=== PATIENT | female | born 1960 | race Caucasian/White ===

== ENCOUNTER 2020-05-10 23:58 | Inpatient (IN) | payer MEDICARE ==
[~2020-05-10] VITALS: Ht 172.7 cm; Wt 99.3 kg
--- NOTE | ~2020-05-10 | EEG ---
[address] [address] EEG STUDY REPORT Name: CHIP CURRY Room: [address] IN M.R.#: [id number] Admission: 05/11/20 Attend Phys: Camacho Rose, Discharge: Date of : 56 Report #: [id number] THIS REPORT FOR: cc: FAM - No family physician/PCP FAM - No family physician/PCP ~ Jewel Rizzo MD DATE OF SERVICE: 05/12/2020 This patient is being evaluated for confusion. EEG was done by placing the electrode by standard 10-20 system of electrode placement. Both referential and sequential montages were used for recording. Background activity is about 7 Hz and 15 microvolt. It is a symmetrical activity. The patient went to a sleep and that is associated with bilateral slowing. Throughout the record, no active epileptiform activity was noticed. IMPRESSION: This patient's EEG demonstrates bilateral slowing. That is a nonspecific finding, which can occur with encephalopathy, effect of psychotropic medication, dementia, etc. Clinical correlation is recommended. Thank you very much for this referral. By: [id number] Rizzo MD /nt
--- NOTE | ~2020-05-10 | EMS ---
[facility] [address] [place] [address] EMS Patient Care Report Name: CHIP CURRY Room: [address] IN M.R.#: [id number] Admission: 05/11/20 Attend Phys: Camacho Rose, Discharge: 05/13/20 Date of : 56 Report #: [id number] THIS REPORT FOR: //name// Report Transmitted: 05/16/2020 07:44 EMS Care Summary [place] [facility] Incident [id number] @ 05/10/2020 22:46 Incident Location [address] [place] [address] Patient CHIP CURRY Female, 59 Years 1960 Patient Address [address] [place] [address] Patient History Hypertension (HTN),Type 2 Diabetes, Chief Complaint Altered LOC Disposition Transported No Lights/[place] Dispatch Reason Sick Person Transported To [facility] Narrative Engine 1 and Med 1 were dispatched for a [age] year-old female that had altered LOC. Upon arrival, patient's met us at the ambulance in the driveway apologizing. I told him," you don't have to apologize we are here to help." He stated," You haven't seen the house yet." We proceeded to the house the porch had clutter and trash all over it with just a small path to the front door. Inside the door, there was a small path to walk through and clutter and trash were piled high to the ceiling. The led us approximately 15 feet inside the door where the [place] [address] EMS Patient Care Report Name: CHIP CURRY Room: [address] IN M.R.#: [id number] Admission: 05/11/20 Attend Phys: Camacho Rose, Discharge: 05/13/20 Date of : 56 Report #: [id number] pathway. The stepped over and I asked the patient what happened. She mumbled," I was going to the bathroom and lost my balance." I asked the patient what happened she reported taking 3 pills of her Gabapentin and 2 pills of her 's Flexeril. The patient's and myself attempted to assist the patient to a standing position. TERESO Jackson was standing behind me to assist due to lack of room in the residence no one was able to assist. The patient walked approximately 3 feet and grabbed on to a hutch that was leaning against the wall and the hutch and all the vases, angel trays and miscellaneous things fell on me. TERESO Jackson was able to push it off me and get it back against the wall. We finally were able to get the patient to the front yard and get her on the stretcher. The patient was secured to the stretcher via seatbelts and moved to the ambulance without incident. In the ambulance, patient's vitals were obtained and patient was placed on the manager monitoring. It shown NSR but the electrodes would not stick to the patient due to her skin being dirty. IV access was attempted 2x without success. Med 1 went enroute to [facility]. Patient was monitored enroute to the hospital and she became more alert and oriented through out transport. Hospital report was given via radio with no questions or orders received or requested. Med 1 arrived at the hospital. Patient was moved into the ER room 4 without incident. Patient care was transferred to ER staff. Med 1 returned back into service. [id number] KShook Initial Vitals @23:19P: 216,BP: 148/91,SpO2: 97, @23:48P: 120, @23:35P: 116,BP: 120/64, @23:38P: 118, @23:29P: 114,R: 18,BP: 134/88,GCS: 14,Glucose: 128,SpO2: 98,Revised Trauma: 12, @23:33P: 116, @23:43P: 121,R: 18,BP: 124/86,GCS: 15,SpO2: 98,Revised Trauma: 12, Assessments @23:03MENTAL:Confused,Other,Person Oriented,Place Oriented,SKIN:HEENT:Head/Face: Swelling,Eyes: Left: Non-Reactive,Eyes: Left Pupil: 2-mm,Eyes: Right: Non-Reactive,Eyes: Right Pupil: 2-mm,Neck/Airway: No Abnormalities,LUNG SOUNDS:ABDOMEN:PELVIS//GI:EXTREMITIES:PULSE:NEURO: Impression [place] [address] EMS Patient Care Report Name: PATRICIOCHIP BERKLEY Room: [address] IN M.R.#: [id number] Admission: 05/11/20 Attend Phys: Camacho VallesJayson Milton, Discharge: 05/13/20 Date of : 56 Report #: [id number] Procedures @23:26 cc (20 ga) Site: Forearm-LeftResponse: UnchangedFailed@23:34 cc (20 ga) Site: Antecubital-LeftResponse: UnchangedFailed@23:38 cc (20 ga) Site: Forearm-RightResponse: UnchangedFailed Timeline 22:46,Call Received 22:46,Dispatched 22:48,En Route 22:53,On Scene 22:55,At Patient 23:19,BP: 148/91 M,PULSE: 216,RR: R,SPO2: 97 Ox,ETCO2: ,BG: ,PAIN: ,GCS: , 23:23,Depart Scene 23:26, cc 20 ga Site: Forearm-Left,Response: UnchangedFailed, 23:29,BP: 134/88 M,PULSE: 114,RR: 18 R,SPO2: 98 Ox,ETCO2: ,B,PAIN: ,GCS: 14, 23:33,BP: / M,PULSE: 116,RR: R,SPO2: Ox,ETCO2: ,BG: ,PAIN: ,GCS: , 23:34, cc 20 ga Site: Antecubital-Left,Response: UnchangedFailed, 23:35,BP: 120/64 M,PULSE: 116,RR: R,SPO2: Ox,ETCO2: ,BG: ,PAIN: ,GCS: , 23:38, cc 20 ga Site: Forearm-Right,Response: UnchangedFailed, 23:38,BP: / M,PULSE: 118,RR: R,SPO2: Ox,ETCO2: ,BG: ,PAIN: ,GCS: , 23:43,BP: 124/86 M,PULSE: 121,RR: 18 R,SPO2: 98 Ox,ETCO2: ,BG: ,PAIN: ,GCS: 15, 23:48,At Destination 23:48,BP: / M,PULSE: 120,RR: R,SPO2: Ox,ETCO2: ,BG: ,PAIN: ,GCS: , 00:24,Call Closed 00:24,In District Disclaimer v1.1 Copyright 2020 [employer] This EMS Care Summary contains data elements from the applicable legal record (which may be displayed differently). It is designed to provide pertinent information for the following purposes: continuity of care, clinical quality, and state data reporting. The complete legal record is available to ED staff and administrators of the receiving hospital in [employer]'s Patient Tracker. All data is provided "as is."
--- NOTE | ~2020-05-10 | CON ---
[address] [address] CONSULTATION Name: CHIP CURRY Room: [address] IN M.R.#: [id number] Admission: 05/11/20 Attend Phys: Camacho Rose, Discharge: Date of : 56 Report #: [id number] THIS REPORT FOR: cc: FAM - No family physician/PCP FAM - No family physician/PCP ~ Jewel Rizzo MD DATE OF SERVICE: 05/11/2020 HISTORY OF PRESENT ILLNESS: This is a 59-year-old female patient who was evaluated by me for confusion. The records were reviewed. Apparently, she was confused when she came in and she has taken muscle relaxer, she has taken gabapentin, then she was confused. She fell down and she was brought here. In the Emergency Room, she had multiple testing, she had a head CT, C-spine CT, thoracic spine CT, and a lumbar spine CT. She thinks she had an MRI, but I do not find any MRI in this patient. REVIEW OF SYSTEMS: A 14-point review of system was carried out, this patient has recurrent falls. She has been on gabapentin for diabetic neuropathy. Her renal function was not very good when she came in. She does not tell me how much gabapentin was she taking, but nurses had called the pharmacy and apparently she takes heavy dosages of gabapentin. One of the records indicate she takes 1800 mg at a given time, but she does not tell me how many times she takes those. A 14-point review of system was carried out. She is still confused. She has some problem with the left knee, which apparently has contusion. She has a history of COPD. She has a history of falls. She is a diabetic. One time, she had cellulitis of the face. She does not have any chest pain. She does have neuropathy. She does not have any new GI, , constitutional, dermatological, hematological, psychiatric, throat, allergic symptoms associated with present symptomatology. PAST MEDICAL HISTORY: Positive for diabetes and apparently she had some episode of dizziness like this even before. She had recurrent falls and she says she falls when she feels dizzy. FAMILY HISTORY: Negative for early age stroke. SOCIAL HISTORY: She is as per records, but I was not able to reach the patient's . PHYSICAL EXAMINATION: GENERAL: Indicate that she tells me what month it is, but she cannot tell me the exact date. She knows what hospital she is in. She knows who the president is. She otherwise does poorly with short-term memory. Cranial nerve examinations appear unremarkable. She does appear to [place] [address] CONSULTATION Name: CURRYCHIP SUE Room: [address] IN M.R.#: [id number] Admission: 05/11/20 Attend Phys: Camacho Rose, Discharge: Date of : 56 Report #: [id number] 4 extremities, but it is symmetrical weakness. It took us some time, but she was able to tell me the position sense on both sides. Her reflexes could not be elicited in the lower extremities. Tone looks unremarkable. [id number]-od-[id number] looks unremarkable. There is no meningeal sign. I could not look at the patient's fundus. There is no carotid bruit. She does have some problem with the knee. She is morbidly obese. CARDIAC: Unremarkable. RESPIRATORY: Shows some scattered rhonchi. VITAL SIGNS: Blood pressure is 119/51, respirations 17, pulse is 114, temperature is 98.7. LABORATORY DATA: White count is 11.7. GFR is 33 and it was actually 27 when she came in. IMPRESSION: 1. Most likely, this is encephalopathy caused by renal dysfunction in a patient who is taking gabapentin. Gabapentin is almost exclusively excreted by kidney and whenever the kidney function is altered, gabapentin toxicity can occur. 2. Other etiologies need to be excluded in this patient. I will suggest getting an MRI and an electroencephalogram done to exclude that. We will give her some time to see if her confusion clears up and she may have to get her gabapentin dose, which is in the future. I discussed all of it with the patient, although it is difficult to tell how much she understands things. Thank you very much for this referral. By: 1358 1427Jewel Rizzo MD /nt
[~2020-05-10 23:58] MED LIST: ALBUTEROL SULFAT2 MG PO; BLOOD PRESSURE MED; DICLOXACILLIN500 MG PO; DULERA 200 MCG/13 GM INH; DUONEB 2.5-0.5 M3 ML INH; FLONASE 0.05%50 MCG NASAL; INSULIN; LEVAQUIN 500 M500 M2 PO; LEVAQUIN 750 M750 MG PO; LEVEMIR FL100 UNIT/1 SUBQ; MUCINEX600 MG PO; NEURONTIN800 MG PO; NOVOLOG FL100 UNIT/M SUBQ; OXYCODONE-APAP1 EAC4 PO; PREDNISONE 10 M10 MG PO; PREDNISONE 20 M20 M1 PO; PREDNISONE 20 M20 MG PO; PRINZIDE 20-251 EACH PO; PULMICORT0.5 MG/2 M INH; SINGULAIR 10 MG10 M1 PO; ZANTAC 150MG T150 M1 PO
[2020-05-10 23:59] VITALS: BP 125/73
[2020-05-11 00:27] LABS: URINE BILIRUBIN NEGATIVE (Negative); URINE BLOOD NEGATIVE (Negative); URINE CLARITY CLEAR; URINE COLOR YELLOW; URINE GLUCOSE-RANDOM 3+ (Negative); URINE KETONES NEGATIVE (Negative); URINE LEUKOCYTES-REFLEX NEGATIVE (Negative); URINE NITRITE-REFLEX NEGATIVE (Negative); URINE PROTEIN NEGATIVE (Negative); URINE UROBILINOGEN 0.2 E.U./dl (0.2-1.0)
[2020-05-11 00:34] LABS: AMP/METHAMP Negative (Negative); BARBITURATES Negative (Negative); BENZODIAZEPINES Negative (Negative); COCAINE Negative (Negative); METHADONE Negative (Negative); OPIATES Negative (Negative); PCP Negative (Negative); THC Negative (Negative)
[2020-05-11 00:56] LABS: CALCIUM 9.7 mg/dL (8.5-10.1); CREATININE 1.9 mg/dL (0.6-1.3); POTASSIUM 4.9 mmol/L (3.5-5.1)
[2020-05-11 01:03] LABS: ABSOLUTE EOSINOPHILS 0.4 thou/uL (0.0-0.7); ABSOLUTE LYMPHOCYTES 1.7 thou/uL (0.8-5.3); ABSOLUTE MONOCYTES 0.5 thou/uL (0.0-1.2); ABSOLUTE NEUTROPHILS 9.1 thou/uL (1.6-8.1); BASOPHILS 0.4 %; EOSINOPHILS 3.2 %; LYMPHOCYTES 14.5 %; MCH 30.9 pg (26.0-34.0); MCHC 33.4 g/dL (28.0-37.0); MCV 92.6 fL (80.0-100.0); MONOCYTES 4.3 %; MPV 7.9 fl. (7.2-11.1); NUCLEATED RBCS 0 /100WBC; PLATELET COUNT* 179 thou/uL (150-400); POLYS 77.6 %; RBC 4.21 mil/uL (4.20-5.00); RDW-CV 13.6 % (10.5-14.5); WBC 11.7 thou/uL (4.0-11.0)
[2020-05-11 01:04] LABS: INR 0.9
[2020-05-11 01:06] LABS: ALBUMIN 3.8 g/dL (3.4-5.0); TOTAL BILIRUBIN 0.6 mg/dL (<0.1-1.0); TOTAL PROTEIN 7.3 g/dL (6.4-8.2)
[2020-05-11 01:07] LABS: SALICYLATE < 2.8 mg/dL (2.8-20.0)
[2020-05-11 01:09] LABS: ACETAMINOPHEN < 2 ug/mL (10-30); ALCOHOL < 10 mg/dL (<10)
[2020-05-11 03:40] VITALS: BP 144/80
[2020-05-11 06:08] VITALS: BP 160/93
[2020-05-11] MEDS ORDERED: GABAPENTIN800 M1 PO (08:02)
[2020-05-11] MEDS ORDERED: TRAZODONE HCL100 MG PO (08:02)
[2020-05-11] MEDS ORDERED: GLIPIZIDE ER2.5 MG PO (08:03)
[2020-05-11] MEDS ORDERED: SYMBICORT80 MCG/4.1 INH (08:04)
[2020-05-11] MEDS ORDERED: LIPITOR 40 MG T40 M1 PO (08:05)
[2020-05-11] MEDS ORDERED: PROZAC10 M1 PO (08:05)
[2020-05-11] MEDS ORDERED: ZYRTEC10 M4 PO (08:07)
[2020-05-11] MEDS ORDERED: LEVEMIR FL100 UNIT/2 SQ (08:07)
[2020-05-11 09:51] LABS: BE -2.4 mmol/L (-2 to +3); PO2 93.5 mmHg (75.0-100.0); pH 7.393 (7.340-7.450)
[2020-05-11 09:55] LABS: CALCIUM 9.2 mg/dL (8.5-10.1); CREATININE 1.6 mg/dL (0.6-1.3); POTASSIUM 4.6 mmol/L (3.5-5.1)
[2020-05-11 09:58] LABS: MAGNESIUM 1.8 mg/dL (1.8-2.4); PHOSPHORUS* 2.9 mg/dL (2.5-4.9)
--- NOTE | 2020-05-11 11:44 | 2DMMODE ---
[place] [address] 2 D/M-MODE ECHOCARDIOGRAM Name: CURRYCHIP GOODEN Room: [address] IN Lynda.#: [id number] Admission: 05/11/20 Attend Phys: Camacho Pickering Discharge: Date of : 56 Date of Service: 05/11/20 1143 Report #: [id number] THIS REPORT FOR: cc: FAM - No family physician/PCP FAM - No family physician/PCP Felix Torres MD [facility] ~ APPROVED REPORT Study performed: 05/11/2020 10:47:32 EXAM: Comprehensive 2D, Doppler, and color-flow Echocardiogram Patient Location: In-Patient Room #: [facility] Status: routine BSA: 2.11 HR: 94 bpm BP: 160/93 mmHg Rhythm: NSR Other Information Study Quality: Good Indications CVA/TIA Echo Enhancing Agent Indication: Rule out Shunt Agent(s) / Amount(s) Used: Agitated Saline 10 cc 2D Dimensions IVSd: 12.58 (7-11mm) LVOT Diam: 20.39 (18-24mm) LVDd: 40.18 mm PWd: 8.88 (7-11mm) Ascending Ao: 29.69 (22-36mm) LVDs: 25.56 (25-40mm) Aortic Root: 33.90 mm Volumes Left Atrial Volume (Systole) LA ESV Index: 17.00 mL/m2 Aortic Valve AoV Peak Nathan.: 1.61 m/s AO Peak Gr.: 10.41 mmHg LVOT Max P.67 mmHg AO Mean Gr.: 6.98 mmHg LVOT Mean P.59 [place] [address] 2 D/M-MODE ECHOCARDIOGRAM Name: CURRYCHIP BERKLEY Room: [address] IN ..#: [id number] Admission: 05/11/20 Attend Phys: Camacho Pickering Discharge: Date of : 56 Date of Service: 05/11/20 1143 Report #: [id number] LVOT Max V: 1.19 m/s AO V2 VTI: 26.53 cm LVOT Mean V: 0.90 m/s BOOM (VTI): 2.91 cm2 LVOT V1 VTI: 23.64 cm Pulmonary Valve PV Peak Nathan.: 1.30 m/s PV Peak Gr.: 6.81 mmHg Left Ventricle The left ventricle is normal size. There is normal LV segmental wall motion. Mild septal hypertrophy is present. Left ventricular systolic function is hyperdynamic. LVEF is >70%. Transmitral Doppler flow pattern suggests impaired LV relaxation. Right Ventricle The right ventricle is normal size. The right ventricular systolic function is normal. Atria The left atrium size is normal. The interatrial septum is intact with no evidence for an atrial septal defect. The right atrium size is normal. Aortic Valve Mild aortic valve sclerosis. No aortic regurgitation is present. There is no aortic valvular stenosis. Mitral Valve The mitral valve is normal in structure. Trace mitral regurgitation. No evidence of mitral valve stenosis. Tricuspid Valve The tricuspid valve is normal in structure. Trace tricuspid regurgitation. Pulmonic Valve The pulmonary valve is normal in structure. There is no pulmonic valvular regurgitation. Great Vessels The aortic root is normal in size. IVC is normal in size and collapses >50% with inspiration. Pericardium There is no pericardial effusion. <Conclusion> [place] [address] 2 D/M-MODE ECHOCARDIOGRAM Name: CHIP CURYR Room: [address] IN .R.#: [id number] Admission: 05/11/20 Attend Phys: Camacho Pickering Discharge: Date of : 56 Date of Service: 05/11/20 1143 Report #: [id number] The left ventricle is normal size. Mild septal hypertrophy is present. Left ventricular systolic function is hyperdynamic. LVEF is >70%. Transmitral Doppler flow pattern suggests impaired LV relaxation. Mild aortic valve sclerosis. Trace mitral regurgitation. Trace tricuspid regurgitation. IVC is normal in size and collapses >50% with inspiration. The interatrial septum is intact with no evidence for an atrial septal defect. <ELECTRONICALLY SIGNED> By: Felix Torres MD, FACC 05/11/20 1143 1143 1143 Felix Torres MD, FACC /INF
[2020-05-11 12:10] VITALS: BP 119/51
--- NOTE | 2020-05-11 12:21 | EKG ---
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: : 1960 Requested By: Hayley Castellano Order Number: [id number] MD: Felix Torres Measurements Intervals [place] Rate: 111 P: 60 TX: 186 QRS: 15 QRSD: 95 T: 84 QT: 329 QTc: 447 Interpretive Statements Sinus tachycardia Baseline wander in lead(s) V6 Compared to ECG 01/06/2017 16:07:02 No significant changes Electronically Signed On 05-11-2020 12:21:41 CDT by Felix Torres [email or web address] <ELECTRONICALLY SIGNED> By: Felix Torres MD, FACC 05/11/20 1221 0008 0008 Felix Torres MD, [facility] /EPI
--- NOTE | 2020-05-11 15:20 | EKG ---
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1887 : 1960 Requested By: Shawn Spaulding Order Number: [id number] MD: Jamie Delgado Measurements Intervals [place] Rate: 122 P: 79 DE: 189 QRS: 0 QRSD: 85 T: 155 QT: 272 QTc: 388 Interpretive Statements Sinus tachycardia Repol abnrm suggests ischemia, lateral leads Baseline wander in lead(s) V5 Compared to ECG 05/11/2020 00:08:37 Possible ischemia now present Electronically Signed On 05-11-2020 15:20:40 CDT by Jamie Delgado [email or web address] <ELECTRONICALLY SIGNED> By: Jamie Delgado MD, FAC 05/11/20 1520 1327 1327 Jamie Delgado MD, FAC /EPI
[2020-05-11 16:00] VITALS: BP 122/71
[2020-05-11 20:30] VITALS: BP 138/76
[2020-05-12 00:03] VITALS: BP 117/63
[2020-05-12 04:22] VITALS: BP 91/60
[2020-05-12 04:31] LABS: MCHC 33.7 g/dL (28.0-37.0); MPV 8.7 fl. (7.2-11.1); RBC 3.37 mil/uL (4.20-5.00); RDW-CV 13.7 % (10.5-14.5); WBC 10.9 thou/uL (4.0-11.0)
[2020-05-12 04:38] LABS: CALCIUM 8.7 mg/dL (8.5-10.1); CREATININE 1.6 mg/dL (0.6-1.3); MAGNESIUM 1.8 mg/dL (1.8-2.4); POTASSIUM 4.4 mmol/L (3.5-5.1)
[2020-05-12 04:52] LABS: HEMOGLOBIN 10.5 gm/dL (12.0-15.0)
[2020-05-12 08:00] VITALS: BP 118/61
[2020-05-12 12:00] VITALS: BP 118/57
[2020-05-12 15:57] VITALS: BP 117/73
[2020-05-12 20:10] VITALS: BP 111/67
[2020-05-13] VITALS: BP 101/58
[2020-05-13 04:00] VITALS: BP 123/63
[2020-05-13 04:43] LABS: HEMOGLOBIN 10.3 gm/dL (12.0-15.0); MCH 31.1 pg (26.0-34.0); MCHC 33.4 g/dL (28.0-37.0); MCV 93.1 fL (80.0-100.0); MPV 7.6 fl. (7.2-11.1); RBC 3.32 mil/uL (4.20-5.00); WBC 8.8 thou/uL (4.0-11.0)
[2020-05-13 05:02] LABS: CALCIUM 8.9 mg/dL (8.5-10.1); CREATININE 1.6 mg/dL (0.6-1.3); MAGNESIUM 1.8 mg/dL (1.8-2.4); POTASSIUM 4.4 mmol/L (3.5-5.1)
[2020-05-13] MEDS ORDERED: NEURONTIN 400400 M1 PO (09:47)
[2020-05-13 12:51] VITALS: BP 139/72
[2020-05-13 12:57] VITALS: BP 139/72
== END 2020-05-13 13:15 | disposition home or self-care (01) | DRG 91 ==
LOC: M.ERS 23:58 → M.TBA-ER 05-11 03:13 → M.2W 05-11 03:13
PROVIDERS: Emergency Medicine; Internal Medicine; ADMIT Family Medicine; ATTEND Family Medicine
PROC: 0HBRXZZ Excision of Toe Nail, External Approach (ICD-10-PCS; principal; 2020-05-11)
DX: G92 Toxic encephalopathy (principal); N17.0 Acute kidney failure with tubular necrosis; E87.2 Acidosis; N04.9 Nephrotic syndrome with unspecified morphologic changes; J44.9 Chronic obstructive pulmonary disease, unspecified; I10 Essential (primary) hypertension; E78.00 Pure hypercholesterolemia, unspecified; S80.02XA Contusion of left knee, initial encounter; S80.01XA Contusion of right knee, initial encounter; W18.39XA Other fall on same level, initial encounter; E66.9 Obesity, unspecified; E11.42 Type 2 diabetes mellitus with diabetic polyneuropathy; B35.1 Tinea unguium; L84 Corns and callosities; L89.629 Pressure ulcer of left heel, unspecified stage; L89.619 Pressure ulcer of right heel, unspecified stage; T50.995A Adverse effect of other drugs, medicaments and biological substances, initial encounter; D72.10 Eosinophilia, unspecified; E11.621 Type 2 diabetes mellitus with foot ulcer; L89.899 Pressure ulcer of other site, unspecified stage; Z20.822 Contact with and (suspected) exposure to COVID-19; Z79.4 Long term (current) use of insulin; Z79.899 Other long term (current) drug therapy; Y92.89 Other specified places as the place of occurrence of the external cause; Y93.89 Activity, other specified; Y99.8 Other external cause status; Z68.33 Body mass index [BMI] 33.0-33.9, adult

== ENCOUNTER 2020-09-28 18:43 | Inpatient (IN) | payer MEDICARE ==
[~2020-09-28] VITALS: Ht 172.7 cm; Wt 106.6 kg
--- NOTE | ~2020-09-28 | EMS ---
[facility] [address] [place] [address] EMS Patient Care Report Name: CHIP CURRY Room: [place] [address] ADM IN [facility]#: [id number] Admission: 09/28/20 Attend Phys: Courtney Daley MD Discharge: Date of : 56 Report #: [id number] THIS REPORT FOR: //name// Report Transmitted: 09/29/2020 12:21 EMS Care Summary [place] [facility] Incident [id number] @ 09/28/2020 17:52 Incident Location [address] [place] [address] Patient CHIP CURRY Female, 60 Years 1960 Patient Address [address] [place] [address] Patient History Hypertension (HTN),Neuropathy,Gout,Type 2 Diabetes, Patient Allergies No known allergies, Patient Medications Trazodone, Gabapentin, Insulin, Chief Complaint gangrene Disposition Transported No Lights/[place] Dispatch Reason Sick Person Transported To [facility] Narrative [place] Med 1 was dispatched on a lift assist. Med 1 responds to the scene urgently. Arrival at the scene patient is located outside the residence on the ground. Family advises that they were attempting to get her to the car to go the hospital when she tripped in the grass with her walker. Patient is GCS 15, [facility] [address] [place] [place] [address] EMS Patient Care Report Name: CHIP CURRY Room: [address] IN [facility]#: [id number] Admission: 09/28/20 Attend Phys: Courtney Daley MD Discharge: Date of : 56 Report #: [id number] AAOx4. Patient has a patent airway is breathing adequately with strong regular radial pulses. Skin is pale warm and dry. Patient denies any chest pain, SOB, neck or back pain. Necrosis is noted to the left foot along with red discoloration and swelling hot to the touch. Patient is moved to the stretcher and secured in the fowlers position using seatbelts and rails. Patient is then wheeled to the ambulance and placed on the monitor, VS and ECG are obtained as well as IV access in the left antecubital region using a 20 gauge and secured with a venigard. 10 ML NS is flushed and glucose check is conducted. Results read HI on the monitor. Fluid bolus of NS is initiated. Transport is initiated to [facility]. Patient is placed on oxygen via ETCO2 capno-cannula at 4LPM and results read 26mmhg. Assessment is conducted. Patient is GCS 15, AAOx4. Patient has a patent airway is breathing adequately with strong regular radial pulses. Skin is pale warm and dry. HEENT are WNL, Pupils are PERRL. Trachea is midline with no JVD noted, Chest wall is stable and intact with symmetrical rise and fall. Lung sounds are clear and equal. Abdomen is soft and nontender with no distention or rigidity noted. Pelvis is stable and intact, CMSX 3 noted. Left foot is noted to be red and hot to the touch. Tenderness is noted along with necrosis of two toes. Dorsal side of the fish is noted to have beginning stages of necrosis. Stroke scale conducted is negative. Arrival at the receiving facility patient condition is stable and unchanged. Patient is offloaded and taken to ED room 9. Patient is moved to the bed using the linen. RN is given report and signatures are obtained. Transfer of care is completed and Med 1 returns to service. Initial Vitals @18:10P: 114,R: 20,Pain: 2/10,GCS: 15,Glucose: -2,SpO2: 91,Revised Trauma: 12,AR Suspected: false @18:08P: 114,R: 22,BP: 144/83,Pain: 6/10,GCS: 15,Glucose: -2,SpO2: 91,Revised Trauma: 12,AR Suspected: false @18:24P: 114,R: 18,BP: 159/74,GCS: 15,EtCO2: 24,SpO2: 99,Revised Trauma: 12, @18:21P: 117,R: 22,BP: 145/87,GCS: 15,SpO2: 99,Revised Trauma: 12, Impression Diabetic Hyperglycemia Procedures @18:09Saline Lock 10cc (20 ga) Site: Antecubital-LeftResponse: UnchangedSucceeded@18:13Normal Saline (.9% NaCl) 1000cc (20 ga) Site: Antecubital-LeftResponse: UnchangedSucceeded@18:24ALS AssessmentResponse: UnchangedSucceeded@18:25Oxygen FlowRate: 4 Device: CO2 Nasal Cannula Response: [address] [address] EMS Patient Care Report Name: CHIP CURRY Room: [address] IN M.R.#: [id number] Admission: 09/28/20 Attend Phys: Courtney Daley MD Discharge: Date of : 56 Report #: [id number] ImprovedSucceeded Timeline 17:52,Call Received 17:52,Dispatched 17:56,En Route 18:05,Initial Responder On Scene 18:05,On Scene 18:07,At Patient 18:08,BP: 144/83 M,PULSE: 114,RR: 22 R,SPO2: 91 Ox,ETCO2: ,BG: -2,PAIN: 6,GCS: 15, 18:09,Saline Lock 10cc 20 ga Site: Antecubital-Left,Response: UnchangedSucceeded, 18:10,BP: 140/ M,PULSE: 114,RR: 20 R,SPO2: 91 Ox,ETCO2: ,BG: -2,PAIN: 2,GCS: 15, 18:13,Depart Scene 18:13,Normal Saline (.9% NaCl) 1000cc 20 ga Site: Antecubital-Left,Response: UnchangedSucceeded, 18:21,BP: 145/87 M,PULSE: 117,RR: 22 R,SPO2: 99 Ox,ETCO2: ,BG: ,PAIN: ,GCS: 15, 18:24,BP: 159/74 M,PULSE: 114,RR: 18 R,SPO2: 99 Ox,ETCO2: 24 ,BG: ,PAIN: ,GCS: 15, 18:24,ALS Assessment,Response: UnchangedSucceeded, 18:25,Oxygen FlowRate: 4 Device: CO2 Nasal Cannula Response: ImprovedSucceeded, 18:37,At Destination 18:40,Transfer Patient 19:04,Call Closed 19:04,In District Disclaimer v1.1 Copyright 2020 [employer] This EMS Care Summary contains data elements from the applicable legal record (which may be displayed differently). It is designed to provide pertinent information for the following purposes: continuity of care, clinical quality, and state data reporting. The complete legal record is available to ED staff and administrators of the receiving hospital in [facility]'s Patient Tracker. All data is provided "as is."
--- NOTE | ~2020-09-28 | EMS ---
[facility] [address] [place] [address] EMS Patient Care Report Name: CHIP CURRY Room: [facility]#: [id number] Admission: 09/28/20 Attend Phys: Discharge: Date of : 56 Report #: [id number] THIS REPORT FOR: //name// Report Transmitted: 09/28/2020 19:12 EMS Care Summary [facility] Incident [id number] @ 09/28/2020 17:52 Incident Location [address] [place] [address] Patient CHIP CURRY Female, 60 Years 1960 Patient Address [address] [place] [address] Patient History Hypertension (HTN),Neuropathy,Gout,Type 2 Diabetes, Patient Allergies No known allergies, Patient Medications Trazodone, Gabapentin, Insulin, Chief Complaint gangrene Disposition Transported No Lights/[place] Dispatch Reason Sick Person Transported To [facility] Narrative [facility] was dispatched on a lift assist. Med 1 responds to the scene urgently. Arrival at the scene patient is located outside the residence on the ground. Family advises that they were attempting to get her to the car to go the hospital when she tripped in the grass with her walker. Patient is GCS 15, [facility] [address] [place] [address] EMS Patient Care Report Name: CHIP CURRY Room: [facility]#: [id number] Admission: 09/28/20 Attend Phys: Discharge: Date of : 56 Report #: [id number] AAOx4. Patient has a patent airway is breathing adequately with strong regular radial pulses. Skin is pale warm and dry. Patient denies any chest pain, SOB, neck or back pain. Necrosis is noted to the left foot along with red discoloration and swelling hot to the touch. Patient is moved to the stretcher and secured in the fowlers position using seatbelts and rails. Patient is then wheeled to the ambulance and placed on the monitor, VS and ECG are obtained as well as IV access in the left antecubital region using a 20 gauge and secured with a venigard. 10 ML NS is flushed and glucose check is conducted. Results read HI on the monitor. Fluid bolus of NS is initiated. Transport is initiated to [facility]. Patient is placed on oxygen via ETCO2 capno-cannula at 4LPM and results read 26mmhg. Assessment is conducted. Patient is GCS 15, AAOx4. Patient has a patent airway is breathing adequately with strong regular radial pulses. Skin is pale warm and dry. HEENT are WNL, Pupils are PERRL. Trachea is midline with no JVD noted, Chest wall is stable and intact with symmetrical rise and fall. Lung sounds are clear and equal. Abdomen is soft and nontender with no distention or rigidity noted. Pelvis is stable and intact, CMSX 3 noted. Left foot is noted to be red and hot to the touch. Tenderness is noted along with necrosis of two toes. Dorsal side of the fish is noted to have beginning stages of necrosis. Stroke scale conducted is negative. Arrival at the receiving facility patient condition is stable and unchanged. Patient is offloaded and taken to ED room 9. Patient is moved to the bed using the linen. RN is given report and signatures are obtained. Transfer of care is completed and Med 1 returns to service. Initial Vitals @18:10P: 114,R: 20,Pain: 2/10,GCS: 15,Glucose: -2,SpO2: 91,Revised Trauma: 12,AK Suspected: false @18:08P: 114,R: 22,BP: 144/83,Pain: 6/10,GCS: 15,Glucose: -2,SpO2: 91,Revised Trauma: 12,AK Suspected: false @18:24P: 114,R: 18,BP: 159/74,GCS: 15,EtCO2: 24,SpO2: 99,Revised Trauma: 12, @18:21P: 117,R: 22,BP: 145/87,GCS: 15,SpO2: 99,Revised Trauma: 12, Impression Diabetic Hyperglycemia Procedures @18:09Saline Lock 10cc (20 ga) Site: Antecubital-LeftResponse: UnchangedSucceeded@18:13Normal Saline (.9% NaCl) 1000cc (20 ga) Site: Antecubital-LeftResponse: UnchangedSucceeded@18:24ALS AssessmentResponse: UnchangedSucceeded@18:25Oxygen FlowRate: 4 Device: CO2 Nasal Cannula Response: [place] [address] EMS Patient Care Report Name: CHIP CURRY [id number] Admission: 09/28/20 Attend Phys: Discharge: Date of : 56 Report #: [id number] ImprovedSucceeded Timeline 17:52,Call Received 17:52,Dispatched 17:56,En Route 18:05,Initial Responder On Scene 18:05,On Scene 18:07,At Patient 18:08,BP: 144/83 M,PULSE: 114,RR: 22 R,SPO2: 91 Ox,ETCO2: ,BG: -2,PAIN: 6,GCS: 15, 18:09,Saline Lock 10cc 20 ga Site: Antecubital-Left,Response: UnchangedSucceeded, 18:10,BP: 140/ M,PULSE: 114,RR: 20 R,SPO2: 91 Ox,ETCO2: ,BG: -2,PAIN: 2,GCS: 15, 18:13,Depart Scene 18:13,Normal Saline (.9% NaCl) 1000cc 20 ga Site: Antecubital-Left,Response: UnchangedSucceeded, 18:21,BP: 145/87 M,PULSE: 117,RR: 22 R,SPO2: 99 Ox,ETCO2: ,BG: ,PAIN: ,GCS: 15, 18:24,BP: 159/74 M,PULSE: 114,RR: 18 R,SPO2: 99 Ox,ETCO2: 24 ,BG: ,PAIN: ,GCS: 15, 18:24,ALS Assessment,Response: UnchangedSucceeded, 18:25,Oxygen FlowRate: 4 Device: CO2 Nasal Cannula Response: ImprovedSucceeded, 18:37,At Destination 18:40,Transfer Patient 19:04,Call Closed 19:04,In District Disclaimer v1.1 Copyright 2020 [employer] This EMS Care Summary contains data elements from the applicable legal record (which may be displayed differently). It is designed to provide pertinent information for the following purposes: continuity of care, clinical quality, and state data reporting. The complete legal record is available to ED staff and administrators of the receiving hospital in [facility]'s Patient Tracker. All data is provided "as is."
[~2020-09-28 18:43] MED LIST changes: +GABAPENTIN800 M1 PO; +GLIPIZIDE ER2.5 MG PO; +LEVEMIR FL100 UNIT/2 SQ; +LIPITOR 40 MG T40 M1 PO; +NEURONTIN 400400 M1 PO; +PROZAC10 M1 PO; +SYMBICORT80 MCG/4.1 INH; +TRAZODONE HCL100 MG PO; +ZYRTEC10 M4 PO
[2020-09-28 18:45] VITALS: BP 148/46
[2020-09-28 19:27] LABS: HEMATOCRIT 33.7 % (37.0-47.0); HEMOGLOBIN 11.1 gm/dL (12.0-15.0); MCH 30.3 pg (26.0-34.0); MCV 91.7 fL (80.0-100.0); MPV 8.2 fl. (7.2-11.1); NUCLEATED RBCS 0 /100WBC; PLATELET COUNT* 383 thou/uL (150-400); RBC 3.67 mil/uL (4.20-5.00); RDW-CV 13.7 % (10.5-14.5); WBC 30.8 thou/uL (4.0-11.0)
[2020-09-28 19:45] LABS: ALBUMIN 2.1 g/dL (3.4-5.0); CALCIUM 8.6 mg/dL (8.5-10.1); CREATININE 2.1 mg/dL (0.6-1.3); POTASSIUM 3.3 mmol/L (3.5-5.1); TOTAL BILIRUBIN 0.7 mg/dL (<0.1-1.0); TOTAL PROTEIN 7.5 g/dL (6.4-8.2)
[2020-09-28 20:26] LABS: ABSOLUTE LYMPHOCYTES 2.8 thou/uL (0.8-5.3); ABSOLUTE MONOCYTES 0.9 thou/uL (0.0-1.2); ABSOLUTE NEUTROPHILS 27.1 thou/uL (1.6-8.1); PLATELET ESTIMATE ADEQUATE
[2020-09-29 01:30] VITALS: BP 105/52
[2020-09-29 01:42] LABS: HEMATOCRIT 28.2 % (37.0-47.0); HEMOGLOBIN 9.4 gm/dL (12.0-15.0); MCH 30.4 pg (26.0-34.0); MCHC 33.5 g/dL (28.0-37.0); MPV 7.9 fl. (7.2-11.1); NUCLEATED RBCS 0 /100WBC; PLATELET COUNT* 342 thou/uL (150-400); RDW-CV 13.7 % (10.5-14.5); WBC 29.2 thou/uL (4.0-11.0)
[2020-09-29 02:04] LABS: ALBUMIN 1.6 g/dL (3.4-5.0); CALCIUM 7.6 mg/dL (8.5-10.1); CREATININE 1.8 mg/dL (0.6-1.3); TOTAL BILIRUBIN 0.4 mg/dL (<0.1-1.0); TOTAL PROTEIN 6.3 g/dL (6.4-8.2)
[2020-09-29 05:30] VITALS: BP 93/57
[2020-09-29 05:59] LABS: ABSOLUTE LYMPHOCYTES 3.8 thou/uL (0.8-5.3); ABSOLUTE MONOCYTES 0.9 thou/uL (0.0-1.2); ABSOLUTE NEUTROPHILS 24.5 thou/uL (1.6-8.1)
[2020-09-29 06:02] LABS: PLATELET ESTIMATE ADEQUATE; POLYCHROMASIA 1+
[2020-09-29 06:08] LABS: ANISOCYTOSIS 1+; POIKILOCYTOSIS 1+
[2020-09-29 09:07] VITALS: BP 122/64
--- NOTE | 2020-09-29 09:39 | EKG ---
[place] [address] ELECTROCARDIOGRAM REPORT Name: CURRYCHIP Room: [place] [address] ADM IN .R.#: [id number] Admission: 09/28/20 Attend Phys: Courtney Daley MD Discharge: Date of : 56 Date of Service: 09/28/201934 Report #: [id number] THIS REPORT FOR: //name// [facility] ED Test Date: 2020-09-28 Test Time: 19:35:30 Pat Name: CHIP CURRY Department: Room: [facility] Gender: F Benefits Specialist: : 1960 Requested By: Tramaine Colin Order Number: [id number] MD: Jamie Delgado Measurements Intervals [place] Rate: 111 P: 70 TX: 186 QRS: 14 QRSD: 110 T: -17 QT: 354 QTc: 481 Interpretive Statements Sinus tachycardia Atrial premature complex Borderline repolarization abnormality Borderline prolonged QT interval Compared to ECG 05/11/2020 13:27:26 Atrial premature complex(es) now present Electronically Signed On 09-29-2020 9:39:47 CDT by Jamie Delgado [email or web address] <ELECTRONICALLY SIGNED> By: Jamie Delgado MD, FAC 09/29/20 0939 34 34 Jamie Delgado MD, FAC /EPI
[2020-09-29 12:12] VITALS: BP 108/51
--- NOTE | 2020-09-29 14:04 | NUR ---
Patient admitted for cellulitis r foot, necrotic toe, sepsis and uncontroled DM. Attempted to see patient twice today with no success. Patient is currently having surgery for toe amputation (R foot, 4th digit). Attempted to call at [phone] and left a vm. Patient lives at home with her and uses a walker for mobility. CM will attempt to talk to patient post surgery to finish CM assessment. CM to continue to follow for safe dc planning
[2020-09-29 15:45] VITALS: BP 122/56
[2020-09-29 19:47] LABS: CALCIUM 7.3 mg/dL (8.5-10.1); CREATININE 1.4 mg/dL (0.6-1.3); POTASSIUM 4.5 mmol/L (3.5-5.1)
[2020-09-29 19:50] LABS: MAGNESIUM 1.6 mg/dL (1.8-2.4); PHOSPHORUS* 2.7 mg/dL (2.5-4.9)
[2020-09-29 20:19] VITALS: BP 137/74
[2020-09-30 00:21] VITALS: BP 127/64
[2020-09-30 04:00] VITALS: BP 152/86
--- NOTE | 2020-09-30 05:15 | NUR ---
PT IS ABLE TO COMMUNICATE HER NEEDS TO STAFF EFFECTIVELY. CURRENT PAIN MEDICATION REGIMEN HAS BEEN ADEQUATE FOR CONTROLLING HER PAIN UP TO THIS TIME. RT FOOT SURGICAL DRESSING AND WRAP INTACT AT THIS TIME; SURGERY TO CHANGE. PT NWB TO RT FOOT AT THIS TIME.
[2020-09-30 08:00] VITALS: BP 148/79
[2020-09-30 12:00] VITALS: BP 119/65
[2020-09-30 12:07] LABS: HEMOGLOBIN 9.7 g/dL (11.1-15.9)
--- NOTE | 2020-09-30 12:37 | NUR ---
Anticipate dc in a few days. Pt had toe amputation yesterday. Therapies will see to determine POC at dc. Pt hopeful to go home. CM following.
--- NOTE | 2020-09-30 15:56 | OP ---
[address] [address] OPERATIVE REPORT Name: CHIP CURRY Room: [address] IN M.R.#: [id number] Admission: 09/28/20 Attend Phys: Courtney Daley MD Discharge: Date of : 56 Report #: [id number] THIS REPORT FOR: cc: FAM - No family physician/PCP FAM - No family physician/PCP Geoffrey Birmingham DPM ~ DATE OF SURGERY: 09/29/2020 PREOPERATIVE DIAGNOSES: 1. Gas gangrene of the right foot. 2. Cellulitis, right foot. 3. Diabetic foot infection, right foot. POSTOPERATIVE DIAGNOSES: 1. Gas gangrene of the right foot. 2. Cellulitis, right foot. 3. Diabetic foot infection, right foot.. SURGEON: Geoffrey Birmingham DPM ASSISTANTS: None. OPERATIONS PERFORMED: 1. Right fourth digit amputation. 2. Incision and drainage of right foot abscess. 3. Debridement of all nonviable soft tissue of the right foot. ANESTHESIA: General. HEMOSTASIS: None. ESTIMATED BLOOD LOSS: 20 mL. SPECIMENS REMOVED: Right fourth digit sent for pathology and right foot deep wound culture sent for micro. DISPOSITION: The patient tolerated the procedure well. The patient left the operating room. Neurovascular status intact noted by capillary refill time less than three seconds to the operative site. The patient was transferred to recovery room in stable condition. OPERATIVE PROCEDURE IN DETAIL: Under light sedation, patient was transferred to the preoperative holding area to the operating room table and placed in the supine position. At this time, all intraoperative parties including Anesthesia agreed that the proper procedure was going to be amputation of the right foot 4th digit, incision and drainage of the right [place] [address] OPERATIVE REPORT Name: CHIP CURRY Room: [address] [place] M.R.#: [id number] Admission: 09/28/20 Attend Phys: Courtney Daley MD Discharge: Date of : 56 Report #: [id number] nonviable soft tissue and bone of the right foot. At this time, the right lower extremity was prepped and draped in normal sterile fashion. Next, at this time, attention was directed towards the right foot where an extensive infection was noted that traveled from the fourth digit all the way towards the ankle. There were areas of necrosis on the dorsal aspect of the foot and the ankle. The right foot 4th digit appeared completely nonviable and was totally necrotic. At this time, an incision was made encompassing the right fourth digit and the right fourth digit was easily disarticulated and removed and sent to the back table for pathology. Upon examination of the soft tissue there was extensive amounts of purulent drainage and necrosis to the underlying soft tissue. The area was explored and there were multiple pockets of abscess formation that were explored and drained. Skin on the lateral aspect of the foot and ankle was mostly necrosed underneath. This necrosis traveled deep into the underlying soft tissue. At this time, using a rongeur as much soft tissue that was nonviable was removed. It appears that the infection had also traveled proximal to the ankle and those areas were explored as well and drained. There also may be possible infection within the ankle joint itself. The infection also seemed to travel on the plantar aspect of the foot. This was noticed when the hemostat was used to explore an area of abscess that went straight through the foot. At this time, it appeared that most of the gas gangrene has been seen on previous x-ray had been released. Next, a pulse lavage was used 1 liter and the area was copiously irrigated. At this time, 1 gram of vancomycin powder was spread throughout the surgical site. This was then covered with half-inch iodoform packing. The area was then dressed with 4 x 4, followed by ABD pad, followed by Kerlix, followed by cast padding, followed by Steven wrap. The patient tolerated the procedure well. The patient left the operating room. Neurovascular status intact noted by capillary refill time less than three seconds to the operative site. The patient was transferred to recovery room in stable condition. During the procedure, soft tissue cultures were also sent. Judging by the amount of destruction caused by the infection the patient will most likely benefit from a BKA. It is unclear whether the foot is salvageable at this point. We will continue to follow closely. I will discuss these options with the patient and we will follow up closely. <ELECTRONICALLY SIGNED> By: Geoffrey Birmingham DPM 09/30/20 1556 1349 1536Aashly Birmingham DPM /say
[2020-09-30 16:00] VITALS: BP 121/56
--- NOTE | 2020-09-30 19:08 | NUR ---
ASSUMED PT CARE AT 0730, PT AOX4, WORKED W/ SURGERY TODAY AND RT FOOT REDRESSED, PICTURE TAKEN AND PUT IN CHART. PT C/O FOOT PAIN THROUGHOUT SHIFT TREATED W/ PRN PAIN MEDS. [facility] CALLED ABOUT PT BEING STAPH HOMINIS POSITIVE FROM SWAB OF FOOT WOUND, DR PENA NOTIFIED. PT GOAL IS PAIN MANAGEMENT AND TO CONTINUE TO WORK W/ SURGERY
[2020-09-30 20:30] VITALS: BP 136/57
[2020-10-01] VITALS: BP 108/55
[2020-10-01 04:00] VITALS: BP 120/60
--- NOTE | 2020-10-01 05:40 | NUR ---
PT AO X4 LYING IN BED WITH RT FOOT ELEVATED ON PILLOW. SHE REPORTED PAIN 5/10 AT BEGINING OF SHIFT AND WAS ADMINISTERED FENTANYL PER MAR. PT LATER REPORTED UNCONTROLLED PAIN AND AN ORDER FOR ORAL MEDS OBTAINED AND GIVEN. THIS WAS GIVEN ALONG WITH FENTANYL AND PT REPORTED RELIEF FOR SMALL TIME(ABOUT 1 HR) BEFORE REPORTING 9/10 PAIN WITH BURNING THROBBING. I ENCOURAGED HER TO ELEVATE AND USE ICE BUT PT REFUSED. PT USING BEDPAN AND CAN ROLL SIDE TO SIDE UNASSISTED. IVF INFUSING PER MAR ALONG WITH ANTIBIOTICS. BED ALARM ON FOR SAFETY, CALL LIGHT WITHIN REACH
[2020-10-01 08:00] VITALS: BP 144/75
[2020-10-01 11:44] VITALS: BP 134/71
[2020-10-01 12:21] LABS: ABSOLUTE BASOPHILS 0.1 thou/uL (0.0-0.2); ABSOLUTE EOSINOPHILS 0.1 thou/uL (0.0-0.7); ABSOLUTE LYMPHOCYTES 2.6 thou/uL (0.8-5.3); ABSOLUTE MONOCYTES 1.7 thou/uL (0.0-1.2); ABSOLUTE NEUTROPHILS 24.7 thou/uL (1.6-8.1); BASOPHILS 0.3 %; EOSINOPHILS 0.4 %; HEMATOCRIT 24.8 % (37.0-47.0); HEMOGLOBIN 8.4 gm/dL (12.0-15.0); MCH 31.1 pg (26.0-34.0); MCHC 33.8 g/dL (28.0-37.0); MCV 91.9 fL (80.0-100.0); MONOCYTES 5.8 %; MPV 8.5 fl. (7.2-11.1); NUCLEATED RBCS 0 /100WBC; PLATELET COUNT* 312 thou/uL (150-400); POLYS 84.5 %; RBC 2.69 mil/uL (4.20-5.00); RDW-CV 13.8 % (10.5-14.5); WBC 29.2 thou/uL (4.0-11.0)
[2020-10-01] MEDS ORDERED: GABAPENTIN800 M1 PO (12:30)
--- NOTE | 2020-10-01 14:11 | NUR ---
No weekend dc planned. Wound vac placed. MRI foot. ID following, continue ivabx. ?amputation. Therapy evals pending.
--- NOTE | 2020-10-01 15:17 | NUR ---
WOUND NURSE: SAYED HERE TO SEE PATIENT TODAY AROUND 1215 AND ORDERED VERAFLO THERAPY FOR PATIENT'S WOUND. THIS WAS APPLIED FOLLOWS: WOUND WAS IRRIGATED WITH STERILE WATER AND PATTED DRY. WOUND VAC DRESSING WAS APPLIED AFTER APPLYING MASTISOL TO PERIWOUND WITH EIKEN SEAL AT 2ND TOE AMP SITE. PLACED GRANUFOAM TO WOUND (CUT TO FIT), COVERED WITH TRANSPARENT DRAPE WITH HOLE CUT FOR TRAC PAD AND VERAFLO INFUSION. THE LINE WAS PRIMED WITH 1/4 STR DAKINS, THEN 30ML INFUSION W/15 MIN DWELL EVERY 3 HOURS. THE FOOT WAS WRAPPED WITH KERLEX ROLL GAUZE UNDER ANIBAL WRAP. WOUND PRESENTS WITH BLACKENED EDGES, RED, NONGRANULATING TISSUE ALONG WITH EXPOSED MUSCLE AND TENDON. THERE IS SLIGHT ODOR AND SEROUSANGUINOUS DRAINAGE PRESENT. REMAINING TOES WITH INCREASED REDNESS AND WARMTH.
[2020-10-01 16:00] VITALS: BP 137/73
[2020-10-01 19:45] VITALS: BP 116/62
[2020-10-02 00:16] VITALS: BP 133/57
[2020-10-02 03:59] VITALS: BP 116/53
--- NOTE | 2020-10-02 05:05 | NUR ---
PT A&O X 3-4. VSS ON RA. MEDS GIVEN ORDERED. DRESSING TO RT FOOT C/D/I. WOUND VAC IN PLACE. RLE ELEVATED ON PILLOW. NO C/O PAIN. PT INCONTINENT. SLEPT MOST OF THE NIGHT. CALL LIGHT WITHIN REACH. WILL CONTINUE TO MONITOR.
[2020-10-02 05:26] LABS: ABSOLUTE BASOPHILS 0.1 thou/uL (0.0-0.2); ABSOLUTE EOSINOPHILS 0.1 thou/uL (0.0-0.7); ABSOLUTE LYMPHOCYTES 2.5 thou/uL (0.8-5.3); ABSOLUTE MONOCYTES 1.4 thou/uL (0.0-1.2); BASOPHILS 0.3 %; EOSINOPHILS 0.2 %; HEMATOCRIT 22.3 % (37.0-47.0); HEMOGLOBIN 7.3 gm/dL (12.0-15.0); LYMPHOCYTES 9.7 %; MCH 30.1 pg (26.0-34.0); MCHC 32.8 g/dL (28.0-37.0); MCV 91.6 fL (80.0-100.0); MONOCYTES 5.3 %; MPV 8.1 fl. (7.2-11.1); NUCLEATED RBCS 0 /100WBC; PLATELET COUNT* 289 thou/uL (150-400); POLYS 84.5 %; RBC 2.44 mil/uL (4.20-5.00); RDW-CV 13.7 % (10.5-14.5); WBC 26.1 thou/uL (4.0-11.0)
[2020-10-02 05:27] LABS: CALCIUM 7.1 mg/dL (8.5-10.1); CREATININE 1.3 mg/dL (0.6-1.3); POTASSIUM 3.3 mmol/L (3.5-5.1)
[2020-10-02 12:00] VITALS: BP 122/52
[2020-10-02 16:00] VITALS: BP 126/59
[2020-10-02 21:00] VITALS: BP 104/46
[2020-10-03 00:40] VITALS: BP 100/55
[2020-10-03 04:06] VITALS: BP 127/66
[2020-10-03 05:26] LABS: HEMATOCRIT 24.1 % (37.0-47.0); HEMOGLOBIN 7.9 gm/dL (12.0-15.0); MCH 30.6 pg (26.0-34.0); MCHC 32.8 g/dL (28.0-37.0); MCV 93.5 fL (80.0-100.0); MPV 9.1 fl. (7.2-11.1); RBC 2.57 mil/uL (4.20-5.00); RDW-CV 14.1 % (10.5-14.5); WBC 30.7 thou/uL (4.0-11.0)
[2020-10-03 05:30] LABS: CALCIUM 7.5 mg/dL (8.5-10.1); CREATININE 1.4 mg/dL (0.6-1.3); POTASSIUM 3.8 mmol/L (3.5-5.1)
--- NOTE | 2020-10-03 08:48 | NUR ---
PATIENT HAS SLEPT WELL THROUGHOUT MOST OF THE NIGHT. VSS ON RA, ALTHOUGH TEMP SLIGHTLY ELEVATED. NOTIFIED AND NEW ORDER GIVEN TO GIVE TYLENOL PO X 1. MEDICATIONS GIVEN ORDERED AND CHARTED. PATIENT TAKES PO MEDICATIONS WELL WITH APPLESAUCE. PATIENT INCONTINENT AT TIMES DURING THE NIGHT. WOUND VAC IN PLACE TO RIGHT FOOT WOUND AND TO CONTINUOUS NEGATIVE PRESSURE SUCTION. NEW WOUND VAC CANNISTER PLACED AND NEW BOTTLE OF STERILE IRRIGATION FLUID STARTED. IV IN LEFT FOREARM-SL. IV IN RIGHT UPPER ARM-NS @ 100ML/HR. PATIENT INSTRUCTED TO USE CALL LIGHT WHEN NEEDING ASSISTANCE. HOURLY ROUNDS MADE. WILL CONTINUE WITH PLAN OF CARE AND NURSING TO MONITOR.
[2020-10-03 12:00] VITALS: BP 128/65
[2020-10-03 16:00] VITALS: BP 136/72
[2020-10-03 20:20] VITALS: BP 123/44
[2020-10-04 01:38] VITALS: BP 128/62
[2020-10-04 04:35] LABS: CALCIUM 7.7 mg/dL (8.5-10.1); CREATININE 1.3 mg/dL (0.6-1.3); POTASSIUM 3.6 mmol/L (3.5-5.1)
[2020-10-04 04:44] LABS: MCH 30.8 pg (26.0-34.0); MCHC 33.5 g/dL (28.0-37.0); MCV 91.9 fL (80.0-100.0); MPV 8.3 fl. (7.2-11.1); RBC 2.61 mil/uL (4.20-5.00); WBC 28.9 thou/uL (4.0-11.0)
[2020-10-04 05:41] VITALS: BP 128/67
--- NOTE | 2020-10-04 08:29 | NUR ---
PATIENT HAS SLEPT WELL THROUGHOUT MOST OF THE NIGHT. VSS ON RA. MEDICATIONS GIVEN ORDERED AND CHARTED. PATIENT DID HAVE SOME NAUSEA DURING THE NIGHT AND NAUSEA MEDICATION GIVEN. PATIENT REQUESTING TO USE BEDPAN D/T HER BEING TOLD BY THAT SHE WAS NWB ON HER RIGHT FOOT. DRESSING TO RIGHT FOOT IS C/D/I AND WOUND VAC IN PLACE TO CONTINUOUS SUCTION. NEW WOUND VAC CANNISTER PLACED. IV IN RIGHT SHOULDER-NS @ 100ML/HR. IV ABT GIVEN WITHOUT ANY ADVERSE SIDE EFFECTS NOTED. PATIENT INSTRUCTED TO USE CALL LIGHT WHEN NEEDING ASSISTANCE. HOURLY ROUNDS MADE. WILL CONTINUE WITH PLAN OF CARE AND NURSING TO MONITOR.
[2020-10-04 12:00] VITALS: BP 130/67
--- NOTE | 2020-10-04 13:04 | NUR ---
DR Monten[place] called and new orders placed.The pateint will be NPO after midnight. Planned the procedure around 730am 10/05/20
--- NOTE | 2020-10-04 15:25 | NUR ---
Pt to have BKA tomorrow. ID and podiatry following. MRI pending. Therapies to eval Pt post surgery to determine appropriate POC at dc. Anticipate dc in a few days
[2020-10-04 16:00] VITALS: BP 114/60
--- NOTE | 2020-10-04 16:45 | NUR ---
unsuccessful IV placement to the RFA.
--- NOTE | 2020-10-04 16:49 | NUR ---
WOUND NURSE: PATIENT SEEN FOR DRESSING CHANGE AND FOLLOW UP ASSESSMENT PERTAINING TO RIGHT FOOT GANGRENE. REMOVED DRESSING AND FOOT APPEARED WORSE. CURRENT MEASUREMENT IS 28.0 X 10.0 X 2.5 CM AND WITH 2.5 CM UNDERMINING FROM 12 TO 12 O'CLOCK. RED NONGRANULATING AND YELLOW NECROTIC TISSUE IN THE WOUND BED AND WITH BLACKEND EDGES TO PERIWOUND AND FOUL ODOR FROM SEROUSANGUINOUS DRAINAGE. PATIENT ALSO WITH BLACKENED ABSCESS ON THE PLANTAR ASPECT OF THE FOOT. DR MILLS HERE AND ROUNDED ON PATIENT AND AGREES WITH BKA TOMORROW BY DR. MARTIN. DISCONTINUED VERAFLOW WOUND WORSENED OVER THE WEEKEND. APPLIED 1/4 STR DAKINS DAMPENED GAUZE TO WOUND, COVERED WITH ADDITIONAL ABD'S WRAPPED WITH KERLEX ROLL GAUZE UNDER ANIBAL WRAP. BKA SCHEDULED FOR 0730 TOMORROW AM.
[2020-10-04 20:05] VITALS: BP 107/52
[2020-10-05] VITALS (7 sets, daily range): BP systolic 94–129; BP diastolic 44–65
--- NOTE | 2020-10-05 04:30 | NUR ---
PT ALERT AND ORIENTED, ROOM AIR. WILL NEED ASSISTANCE X2 FROM BED TO CHAIR. SHE USES BEDPAN AT NIGHT AND SLEPT WELL. SHE DID RECEIVED SOME PAIN MEDS AT BEDTIME. SINUS RHYTHM ON MONITOR. NPO SINCE MIDNIGHT. NON WB STATUS ON RIGHT LOWER EXTREMITY. RECIEVED ALL FLUIDS/ABX UNTIL IV INFILTRATED. MYSELF, CHARGE NURSE AND SCALEMAN UNSUCCESSFUL AT ANOTHER IV START, WILL NEED INFUSION ASSISTANCE.
[2020-10-05 05:13] LABS: HEMATOCRIT 23.6 % (37.0-47.0); HEMOGLOBIN 7.3 gm/dL (12.0-15.0); MCH 29.5 pg (26.0-34.0); MCV 95.3 fL (80.0-100.0); RBC 2.47 mil/uL (4.20-5.00); RDW-CV 14.3 % (10.5-14.5); WBC 19.1 thou/uL (4.0-11.0)
[2020-10-05 05:26] LABS: CALCIUM 7.6 mg/dL (8.5-10.1); CREATININE 1.3 mg/dL (0.6-1.3); POTASSIUM 3.7 mmol/L (3.5-5.1)
[2020-10-05 09:47] LABS: HEMOGLOBIN 6.2 gm/dL (12.0-15.0)
[2020-10-05 09:48] LABS: HEMATOCRIT 18.8 % (37.0-47.0)
--- NOTE | 2020-10-05 10:43 | CON ---
[address] [address] CONSULTATION Name: CHIP CURRY Room: [address] IN M.R.#: [id number] Admission: 09/28/20 Attend Phys: Courtney Daley MD Discharge: Date of : 56 Report #: [id number] THIS REPORT FOR: cc: FAM - No family physician/PCP FAM - No family physician/PCP Richard Montenegro II DO ~ DATE OF CONSULTATION: 10/04/2020 CHIEF COMPLAINT: Right leg necrosis. HISTORY OF PRESENT ILLNESS: The patient admitted on 09/29/2020. After admission through the ER, Podiatry was consulted at that time. They did have evaluation of a necrotic fourth toe, which I believe was resected. When they saw that the infection went further up into the leg, they did consult Orthopedic Surgery. At this time, I was concrete tester and they were instructed to call the on-call physicians for orthopedic coverage. I did that and apparently had no response. I consulted today on 10/04 for further evaluation of the right leg. The patient is a 58-year-old female with history of type 2 diabetes, metabolic encephalopathy, cellulitis, onychomycosis and sepsis. She did go to the Emergency department last week due to painful necrotic fourth toe on the right foot. She is a poor historian, but states that she has noticed for several days, it had turned black, subsequently developing increased pain. It did not resolve with ice or rest. The patient reports she has had fevers, chills and abdominal pain as well as diarrhea that started at the same time. Her states that prior to her visit 1 week ago, they did notice the affected toe turned red after the patient wore tight shoes for a prolonged period of time. He states that the patient had difficulty with ambulation and onset of symptoms. He also states that the patient is not compliant with her home medications and has not monitored blood glucose levels for over 3 weeks. MEDICAL PROBLEMS: 1. History of foot callus, cellulitis. 2. Abscess of the face. 3. Cellulitis of the right foot. 4. Confusion. 5. Contusion of bilateral knees. 6. COPD exacerbation. 7. Diabetic foot. 8. Encephalopathy. 9. Previous falls. 10. Foot pain bilaterally. 11. Toe necrosis. 12. Onychomycosis. 13. [place] [address] CONSULTATION Name: CHIP CURRY Room: [address] IN [facility]#: [id number] Admission: 09/28/20 Attend Phys: Courtney Daley MD Discharge: Date of : 56 Report #: [id number] 14. Sepsis, acute. 15. Uncontrolled diabetes mellitus, acute. 16. UTI. ALLERGIES: The patient denies any known drug allergies. MEDICATIONS: Listed in H and P. FAMILY HISTORY: Noncontributory. SOCIAL HISTORY: The patient denies any tobacco, alcohol or illicit drug use at this time. REVIEW OF SYSTEMS: The patient does have right leg pain and swelling. Denies any other pertinent review of systems other than what is positive in the HPI. PHYSICAL EXAMINATION: VITAL SIGNS: Temperature 36.5, pulse 98, respirations 17, blood pressure 122/64, pulse ox 100%. GENERAL: The patient is alert and cooperative, in mild distress due to confusion and poor memory. HEENT: Atraumatic. PERRLA. Moist mucous membranes. NECK: No JVD. CARDIOVASCULAR: Regular rate and rhythm. No notable rubs. LUNGS: Clear to auscultation bilaterally. No crackles or rales. ABDOMEN: Soft, nontender. No masses, no guarding. SKIN: Color is normal. No evidence of significant wounds on the upper torso. Right leg does have skin cellulitis and necrosis. EXTREMITIES: The patient's right lower extremity does have significant edema and tenderness and swelling as well as erythema, necrosis and a foul smelling odor. NEUROLOGIC: The patient has decreased nerve function to the lower extremities due to neuropathy. Does have normal speech, although slightly altered mental status due to confusion. PSYCHIATRIC: The patient is cooperative and confused. LABORATORY DATA: Most recent labs show white blood cells of 28.9, hemoglobin 8.0, hematocrit 24, platelet count is 294. Chemistry shows sodium of 142, potassium 3.6, chloride of 112, carbon dioxide of 20, BUN of 10, creatinine of 1.3, glucose are 93. IMAGING: Foot x-ray on 09/29 shows extensive soft tissue gas along the lateral aspect of the foot. The bones are well mineralized. No acute fracture is identified. There has been amputation of the fourth toe at the [place] [address] CONSULTATION Name: CHIP CURRY Room: [address] IN M.R.#: [id number] Admission: 09/28/20 Attend Phys: Courtney Daley MD Discharge: Date of : 56 Report #: [id number] joint. Persistent dislocation of the third MTP joint. MRI on 10/04, findings of extensive edema throughout the dorsal subcutaneous fat that is compatible with cellulitis, possible necrotizing fasciitis. Nonspecific edema throughout the plantar musculature of the forefoot. Correlate for infectious or inflammatory myositis. Doppler study of the lower extremities shows no evidence of right leg deep venous thrombosis. Arterial studies shows areas of somewhat poor flow visualized through the femoral artery representing obscured areas of stenosis or diffuse plaquing. Vessels are not well visualized. Significant plaquing and occlusive disease in the femoral artery. High-grade stenosis of the dorsalis pedis artery. Segment of poor visualization with possible stenosis or occlusion of the posterior tibial artery. ASSESSMENT: 1. Sepsis with gas gangrene of the right foot extending up to the ankle. 2. Diarrhea. 3. Diabetic foot infection. 4. Type 2 diabetes, poorly controlled. Hemoglobin A1c is 10.1. 5. Severe protein-calorie malnutrition. 6. Encephalopathy. 7. Confusion. 8. Sepsis. PLAN: At this time, ID has been consulted. Podiatry has been consulted. They previously amputated the toe. However, extensive necrosis has continued to pursue up the leg into the ankle region and we are consulted for evaluation and possible BKA. This was discussed with the patient in detail about the surgery. Even though there is some confusion, the patient is able to make her own decision and does wish to proceed with below-knee amputation. She discussed continued monitoring as well as infection risk dehiscence as well as the need for future surgery due to her significant diabetes and uncontrolled hemoglobin A1c status. We will begin n.p.o. until surgery tomorrow. Consent is obtained and signed. All risks and benefits were discussed with the patient in detail about surgery. The patient wished to proceed with similar risks. [address] [address] CONSULTATION Name: CHIP CURRY Room: [address] ADM IN M.R.#: [id number] Admission: 09/28/20 Attend Phys: Courtney Daley MD Discharge: Date of : 56 Report #: [id number] I appreciate this consultation and the opportunity to be involved in this case. <ELECTRONICALLY SIGNED> By: Richard Montenegro II, DO 10/05/20 1043 2149 [id number] Isael Montenegro II, DO /nt
--- NOTE | 2020-10-05 11:39 | PATH ---
[address] [address] PATHOLOGY RPT PROCEDURE Name: CHIP TARIQ Room: [address] IN M.R.#: [id number] Admission: 09/28/20 Date of : 56 Discharge: Report #: [id number] Path Case #: [id number] LCA Accession Number: [id number] . 01 Material submitted: . foot - RIGHT 4TH DIGIT. Modifiers: right, fourth . 01 Clinical history: . GAS GANGRENE . 02 Diagnosis: Right fourth digit, amputation: - Ulceration and gangrenous necrosis. - Marked acute osteomyelitis. - Bone margin viable and unremarkable. - Additional fragments showing skin and subcutaneous tissue with marked acute inflammation and fibrinoid degeneration. (IUV:jose miguel; 10/04/2020) MBR 10/04/2020 1723 Local . 02 Electronically signed: . Renetta Frausto MD, Pathologist NPI- [id number] . 01 Gross description: . The specimen is received in formalin, labeled "Chip Tariq, right fourth digit (toe)". Received is an AP dated digit measuring 4.2 x 2.1 x 1.5 cm in greatest dimensions. The bone margin is smooth and concave in appearance, can disarticulation. The bone margin is inked black. The epidermal surface is brown-black and partially mummified in appearance. A full-thickness longitudinal cross-section is submitted from proximal to distal aspects in cassettes A1 and A2, following decalcification. . Also received within the specimen container are additional segments of pale chester to dusky lópez-black skin measuring 5.6 x 2.8 x 1.1 cm in aggregate dimensions. The specimen is submitted representatively in cassette A3. (CAA; 10/01/2020) QAC/QAC 10/01/2020 1121 Local . 02 Pathologist provided ICD-10: L97.519, I96, M86.171, L98.9 . 02 CPT . 660866, 029650 Specimen Comment: A courtesy copy of this report has been sent to [phone] Specimen Comment: Report sent to Specimen Comment: A duplicate report has been [place] [id number] PATHOLOGY RPT PROCEDURE Name: CHIP TARIQ Room: [address] IN M.R.#: [id number] Admission: 09/28/20 Date of : 56 Discharge: Report #: [id number] Path Case #: [id number] updates. Performed at: [address] [facility] [id number] [facility] [address], [place], [place] [id number] MD Neal Wallace MD Phone: [phone] Performed at: [address] [id number] MD Renetta Frausto MD Phone: [phone]
--- NOTE | 2020-10-05 13:43 | NUR ---
BKA today. ID following for ivabx. ARU consulted. Therapies to see.
[2020-10-06] VITALS: BP 127/56
[2020-10-06 06:16] LABS: MCH 29.7 pg (26.0-34.0); MCHC 32.8 g/dL (28.0-37.0); MCV 90.8 fL (80.0-100.0); MPV 6.9 fl. (7.2-11.1); RBC 2.1 mil/uL (4.20-5.00); RDW-CV 13.8 % (10.5-14.5); WBC 14.4 thou/uL (4.0-11.0)
[2020-10-06 06:23] LABS: HEMATOCRIT 19.1 % (37.0-47.0); HEMOGLOBIN 6.2 gm/dL (12.0-15.0)
[2020-10-06 06:24] LABS: CREATININE 1.2 mg/dL (0.6-1.3)
--- NOTE | 2020-10-06 06:34 | NUR ---
PT RECEIVED 1 UNIT PRBC OVERNIGHT THIS AM HGB 6.[address] WALLACE PAGED AND ORDERED ENTERED BY AT 0632 FOR ANOTHER UNIT
[2020-10-06 10:45] VITALS: BP 102/56; BP 105/56; BP 106/50; BP 116/60; BP 99/53
--- NOTE | 2020-10-06 14:57 | NUR ---
BABITA yesterday. Therapies to see. ARU consult placed. Anticipate dc in a few days.
[2020-10-06 16:00] VITALS: BP 89/67
[2020-10-06 20:58] VITALS: BP 98/66
[2020-10-07] VITALS (7 sets, daily range): BP systolic 100–118; BP diastolic 47–67
[2020-10-07 04:28] LABS: HEMATOCRIT 21.2 % (37.0-47.0); HEMOGLOBIN 7.1 gm/dL (12.0-15.0); MCH 29.7 pg (26.0-34.0); MCHC 33.4 g/dL (28.0-37.0); MCV 89.1 fL (80.0-100.0); MPV 7.3 fl. (7.2-11.1); RBC 2.39 mil/uL (4.20-5.00); RDW-CV 14.7 % (10.5-14.5); WBC 15.4 thou/uL (4.0-11.0)
[2020-10-07 04:42] LABS: CALCIUM 7.1 mg/dL (8.5-10.1); CREATININE 1.4 mg/dL (0.6-1.3); POTASSIUM 3.9 mmol/L (3.5-5.1)
--- NOTE | 2020-10-07 04:55 | NUR ---
PT SLEPT WELL THIS SHIFT. PAIN WELL MANAGED WITH 4MG MORPHINE NEEDED. RIGHT LOWER EXTREMITY ELEVATED. SHE IS INCONTINENT OF URINE DURING NIGHT. RECEIVED ALL ABX AND FLUIDS ORDERED.
[2020-10-07 09:18] LABS: % SATURATION 20 % (20-39); IRON 13 ug/dL (50-175)
--- NOTE | 2020-10-07 12:16 | NUR ---
Anticipate dc in a few days. New therapy orders placed. ARU following.
--- NOTE | 2020-10-07 15:14 | OP ---
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 PROCEDURE: Right below-knee amputation. SURGEON: Richard Montenegro II, DO. SOLAR PV INSTALLER SURGEON: . ANESTHESIA: Per operative record. ESTIMATED BLOOD LOSS: 300 mL. ANTIBIOTICS: Preoperatively in chart. DRAINS: Medium Hemovac. COMPLICATIONS: None. CONDITION: The patient is stable to recovery room. OPERATIVE PROCEDURE: Patient was taken to the operative suite, placed supine on the operating table under appropriate anesthesia. The patient's affected lower extremity was sterilely prepped and draped with a well-padded tourniquet to the upper thigh. Surgery began by marking out of the incisions for a fish mouth BKA approximately 10 cm in bone length below the tibial tubercle. Skin flaps were made to appropriate length. After this, tourniquet was inflated after gravity exsanguination. Incision was then made along the premarked areas down through subcutaneous tissues. Careful hemostasis was maintained with electrocautery and Aquamantys as well as 0 silk ties for the larger vessels. These were then clipped and cauterized in the ends. The excess muscle was then bevelled, utilizing the amputation knife. Saw was utilized to cut the tibia and fibula in appropriate fashion and chamfer cuts were made. Final irrigation of the tissue was then performed. The fascia was then sewn to the anterior portion of the subcuticular layer and the tissues were closed utilizing a 0 Vicryl, 2-0 Vicryl and a nylon with todd. The wound was then dressed utilizing 4 x 4s, [place] [address] OPERATIVE REPORT Name: CURRYCHIP BERKLEY Room: [address] IN [facility]#: [id number] Admission: 09/28/20 Attend Phys: Courtney Daley MD Discharge: Date of : 56 Report #: [id number] Steven wrap as well as splint. Drain was activated. Patient was transported to recovery in stable condition. Counts were correct. <ELECTRONICALLY SIGNED> By: Richard Montenegro II, DO 10/07/20 1514 2059 [id number] Montenegro II, DO /nt
[2020-10-08 04:15] VITALS: BP 107/57
[2020-10-08 08:20] VITALS: BP 100/48
[2020-10-08 09:25] LABS: HEMATOCRIT 21.3 % (37.0-47.0); HEMOGLOBIN 7.1 gm/dL (12.0-15.0); MCH 30.1 pg (26.0-34.0); MCHC 33.1 g/dL (28.0-37.0); MCV 90.8 fL (80.0-100.0); MPV 7.1 fl. (7.2-11.1); RBC 2.34 mil/uL (4.20-5.00); RDW-CV 14.6 % (10.5-14.5); WBC 14.7 thou/uL (4.0-11.0)
[2020-10-08 09:44] LABS: CALCIUM 7.6 mg/dL (8.5-10.1); CREATININE 1.3 mg/dL (0.6-1.3)
[2020-10-08 12:00] VITALS: BP 105/67
[2020-10-08 16:01] VITALS: BP 106/52
--- NOTE | 2020-10-08 16:08 | NUR ---
CM spoke with Pt's son, dtr and brother today, all confirmed that they do not believe that Pt would be compliant with cares if she returns home. CM continues to be unable to reach by phone. Pt in agreement with ARU, but CM needs to confirm that family is able to assist post dc from ARU. Family is suppose to discuss this weekend and let CM know on Sunday. Chapito (brother) [phone] Akshat (son) [phone] Cherrie (dtr) [phone]
[2020-10-08 20:00] VITALS: BP 121/63
[2020-10-08 23:54] VITALS: BP 112/55
[2020-10-09] VITALS (7 sets, daily range): BP systolic 100–128; BP diastolic 44–63
[2020-10-09 05:07] LABS: MCHC 33.2 g/dL (28.0-37.0); MCV 90.4 fL (80.0-100.0); MPV 7.3 fl. (7.2-11.1); RBC 2.09 mil/uL (4.20-5.00); RDW-CV 15.1 % (10.5-14.5); WBC 12.7 thou/uL (4.0-11.0)
[2020-10-09 05:32] LABS: HEMATOCRIT 18.9 % (37.0-47.0); HEMOGLOBIN 6.3 gm/dL (12.0-15.0)
[2020-10-09 20:21] LABS: HEMATOCRIT 23.4 % (37.0-47.0); HEMOGLOBIN 7.7 gm/dL (12.0-15.0); MCH 29.3 pg (26.0-34.0); MCHC 32.9 g/dL (28.0-37.0); MCV 89.1 fL (80.0-100.0); MPV 6.5 fl. (7.2-11.1); RBC 2.63 mil/uL (4.20-5.00); RDW-CV 15.4 % (10.5-14.5); WBC 11.5 thou/uL (4.0-11.0)
[2020-10-10 04:00] VITALS: BP 100/63
[2020-10-10 06:30] LABS: HEMATOCRIT 23.7 % (37.0-47.0); HEMOGLOBIN 7.7 gm/dL (12.0-15.0); MCH 29.2 pg (26.0-34.0); MCHC 32.6 g/dL (28.0-37.0); MCV 89.6 fL (80.0-100.0); MPV 6.9 fl. (7.2-11.1); RBC 2.64 mil/uL (4.20-5.00); RDW-CV 15.4 % (10.5-14.5); WBC 11.3 thou/uL (4.0-11.0)
[2020-10-10 08:00] VITALS: BP 119/59
[2020-10-10 12:00] VITALS: BP 104/51
[2020-10-10 16:00] VITALS: BP 120/57
[2020-10-10 20:00] VITALS: BP 110/48
[2020-10-11] VITALS: BP 123/63
[2020-10-11 04:28] VITALS: BP 131/61
[2020-10-11 04:41] LABS: HEMATOCRIT 23.9 % (37.0-47.0); MCH 30.4 pg (26.0-34.0); MCHC 33.5 g/dL (28.0-37.0); MCV 90.6 fL (80.0-100.0); MPV 6.9 fl. (7.2-11.1); RBC 2.63 mil/uL (4.20-5.00); RDW-CV 15.1 % (10.5-14.5); WBC 9.2 thou/uL (4.0-11.0)
--- NOTE | 2020-10-11 04:42 | NUR ---
ASSUMED PT CARE AT APPROX 1930. PT IS AWAKE AND ORIENTED X4. PT IS NOT IN DISTRESS, NO DESATURATIONS NOTED ON ROOM AIR. PT C/O RIGHT STUMP PAIN RELIEVED BY PAIN MEDS GIVEN PER APR. PT IS ABLE TO REST THROUGHOUT THIS SHIFT. CALL LIGHT WITHIN REACH. HOURLY ROUNDING DONE FOR PT SAFETY. HIGH FALL PRECAUTIONS IN PLACE.
[2020-10-11 09:15] VITALS: BP 142/70
[2020-10-11 12:00] VITALS: BP 123/61
--- NOTE | 2020-10-11 14:28 | NUR ---
Therapies saw today. now in room, confirmed with Pt and that plan is for Pt to return to home with post dc from ARU. states that he can assist with Pt's care if needed. Plan dc to ARU in the morning
--- NOTE | 2020-10-11 15:07 | PATH ---
[address] [address] PATHOLOGY RPT PROCEDURE Name: CHIP TARIQ Room: [address] IN M.R.#: [id number] Admission: 09/28/20 Date of : 56 Discharge: Report #: [id number] Path Case #: [id number] LCA Accession Number: [id number] . 01 Material submitted: . foot - RIGHT FOOT AND LOWER EXTREMITY. Modifiers: right . 01 Clinical history: . BELOW KNEE AMPUTATION GAS GANGRENE AND NECROSIS OF RIGHT FOOT . 02 Diagnosis: Right foot and lower extremity, below knee amputation: - Benign right lower extremity with missing fourth toe and with nonspecific ulcerations of foot showing extensive necrosis and acute inflammation of underlying soft tissues and with diffuse severe calcifying arteriosclerosis of anterior and posterior tibial arteries, including near occlusion of posterior tibial artery. . (EVELYN:milton; 10/07/2020) [facility] 10/08/2020 1058 Local . 02 Electronically signed: . Demar Be MD, Pathologist NPI- [id number] . 01 Gross description: . The specimen is received in formalin, labeled "Chip Tariq" with no designation on the specimen container. The specimen is labeled per the requisition "below knee amputation, right foot". It consists of a right wzzda-mwc-hybf amputation measuring 30.0 cm from resection surface to heel, 22.0 cm from the heel to longest toe, and ranges in circumference from 24.0-26.0 cm in greatest dimension. The skin and soft tissue at the resection surface appears grossly viable. Two bony segments extend from the resection surface each displaying a smooth resection surface which appears grossly viable. Identified on the dorsal lateral aspect of the foot and the plantar medial aspect of the foot are multiple lópez-green, erythematous ulcers ranging from 3.5-18.0 cm in greatest dimension. Skeletal muscle and tendons are grossly visible deep to the ulcer on the dorsal aspect of the foot. The skin surrounding the ulcers appears markedly sloughed and erythematous. The 4th toe is not present. The four present toes each display a chester thickened nail. Identified on the dorsal medial aspect of the foot, and partially involved with the ulcer, is a green-blue flower tattoo. The remaining epidermal surface appears chester, wrinkled and hairbearing. Sectioning through the vasculature reveals focally calcified and stenosed lumens. The posterior tibialis artery appears 90% stenosed and the anterior tibialis artery appears 5% stenosed. Also identified within the specimen container is a chester-red, [place] [address] PATHOLOGY RPT PROCEDURE Name: CHIP TARIQ Room: [address] IN M.R.#: [id number] Admission: 09/28/20 Date of : 56 Discharge: Report #: [id number] Path Case #: [id number] soft tissue fragment measuring 6.5 x 6.0 x 2.5 cm. Manager Social Work sections are submitted as follows: A1: Skin and soft tissue margin A2: Manager Social Work sections of ulcers A3: Ant. and post. tibialis vasculature (MRF; 10/06/2020) MFE/MFE 10/08/2020 1058 Local . 02 Pathologist provided ICD-10: L28.0 . 02 CPT . 216718 Specimen Comment: A courtesy copy of this report has been sent to [phone] Specimen Comment: [phone] Specimen Comment: Report sent to / DR MARTIN Specimen Comment: A duplicate report has been generated due to demographic updates. Performed at: 01 [facility] [address] [facility] [address], [place], [place] [id number] MD Neal Wallace MD Phone: [phone] Performed at: 02 [facility] [address], [place], [place] [id number] MD Demar Be MD Phone: [phone]
[2020-10-11 16:00] VITALS: BP 108/67
[2020-10-11 20:05] VITALS: BP 116/63
--- NOTE | 2020-10-11 20:25 | NUR ---
ASSUMED PT CARE AT 0730. ASSESSMENT COMPLETED. PT A&O X4. PT UP TO RECLINER TODAY WITH ASSIST OF THERAPY. STUMP DRESSING IS DRY AND INTACT. MEDICATIONS ADMINISTERED ORDERED.SAFETY MEASURES IN PLACE. PT REQUEST TO BE ALLOWED TO STAY UP IN RECLINER. VSS.
--- NOTE | 2020-10-12 00:03 | NUR ---
ASSUMED CARE OF PT AT 1900. PT IS ALERT AND ORIENTED. VSS. PERRLA. NO COMPLAINTS OF PAIN. PT IS ON ROOM AIR. PT IS IN SINUS RYTHM ON THE TELEMETRY. PT IS RESTING COMFORTABLY IN BED. RESPIRATIONS ARE EVEN AND NONLABORED. WILL CONTINUE TO MONITOR PT.
[2020-10-12 00:15] VITALS: BP 124/64
[2020-10-12 04:40] VITALS: BP 130/60
[2020-10-12 04:44] LABS: HEMATOCRIT 23.8 % (37.0-47.0); MCH 30.2 pg (26.0-34.0); MCHC 33.6 g/dL (28.0-37.0); MCV 89.8 fL (80.0-100.0); RBC 2.65 mil/uL (4.20-5.00); RDW-CV 14.9 % (10.5-14.5); WBC 9.2 thou/uL (4.0-11.0)
[2020-10-12 05:11] LABS: CALCIUM 7.9 mg/dL (8.5-10.1); CREATININE 1.3 mg/dL (0.6-1.3)
[2020-10-12 08:50] VITALS: BP 144/77
[2020-10-12 12:00] VITALS: BP 137/72
--- NOTE | 2020-10-12 14:27 | NUR ---
WOUND NURSE: PATIENT SEEN FOR DRESSING CHANGE TO RIGHT BKA. REMOVED DRESSING AND CLEANSED GENTLY WITH STERILE SALINE MOISTENED 4X4'S, PATTED DRY. APPLIED XEROFORM GAUZE ALONG INCISION,T HEN COVERED WITH DRY 4X4 GAUZE SPONGES UNDER ABD'S, WRAPPED WITH 2 KERLEX ROLLS UNDER ANIBAL WRAP. CLEANED HER SPLINT, THEN RE-LINED IT WITH COTTON CAST PADDING PLACED IT BACK, THEN WRAPPED WITH 2ND ANIBAL WRAP. THIS WAS TOLERATED WELL BY THE PATIENT. INCISION CLOSED WITH INTACT JOSE A AND RETENTION SUTURES. NO ACTIVE DRAINAGE SMALL AMOUNT OF SANGUINOUS DRAINAGE ON OLD DRESSING. NO PERIWOUND REDNESS, WARMTH, OR INDURATION. PATIENT INSTRUCTED ON MEASURES TO PROMOTE HEALING AND PREVENT COMPLICATING FACTORS. PATIENT WANTED THE SPLINT LEFT OFF, BUT EXPLAINED THAT IS HELPS PROTECT THE POSTOPERATIVE SITE FROM INJURY. PATIENT STATED SHE UNDERSTOOD.
[2020-10-12] MEDS ORDERED: OXYCODONE HCL 55 MG PO (16:25)
[2020-10-12] MEDS ORDERED: NEURONTIN 400M400 M2 PO (16:27)
[2020-10-12] MEDS ORDERED: COLACE 100 MG100 MG PO (16:30)
[2020-10-12] MEDS ORDERED: PROTONIX40 M2 PO (16:31)
--- NOTE | 2020-10-12 17:08 | NUR ---
ASSUMED PT CARE AT 0730. PT IS A&O X4. PT IS PLEASANT, SPOUSE HERE MOST OF THE DAY. ASSESSMENT COMPLETED, VSS. WOUND NURSE REMOVED DRESSING TO LIMB, SUTURES ARE INTACT, NO DRAINAGE AND OR REDDNESS.PT REQUESTED PAIN MED X1 THIS SHIFT, PRN MEDICATION ADMINISTERED WITH EFFECTIVE RESULTS.NEW ORDERS TO DISCHARGE PT TO REHAB. DISCHARGE INSTRUCTIONS REVIEWED WITH PT. HEART MONITOR REMOVED AND IV DC'D. ALL BELONGINGS WITH PT. PT TRANSPORTED PER NURSING STAFF TO REHAB UNIT TO 323. REPORT GIVEN TO CASSANDRA.
== END 2020-10-12 18:02 | DRG 853 ==
LOC: M.ERS 18:43 → M.2W 21:32 → M.TBA-ER 21:32 → M.2W 09-29 16:07
PROVIDERS: Family Medicine; Internal Medicine; Nurse Practitioner Family; Orthopaedic Surgery; Podiatrist; ADMIT Family Medicine; ATTEND Family Medicine
PROC: 0Y6V0Z0 Detachment at Right 4th Toe, Complete, Open Approach (ICD-10-PCS; principal; 2020-09-29)
PROC: 30233N1 Transfusion of Nonautologous Red Blood Cells into Peripheral Vein, Percutaneous Approach (ICD-10-PCS; 2020-10-05)
PROC: 0Y6F0ZZ Detachment at Right Knee Region, Open Approach (ICD-10-PCS; 2020-10-05)
DX: A41.9 Sepsis, unspecified organism (principal); A48.0 Gas gangrene; E43 Unspecified severe protein-calorie malnutrition; L03.115 Cellulitis of right lower limb; E11.52 Type 2 diabetes mellitus with diabetic peripheral angiopathy with gangrene; G93.40 Encephalopathy, unspecified; L97.818 Non-pressure chronic ulcer of other part of right lower leg with other specified severity; J44.9 Chronic obstructive pulmonary disease, unspecified; I10 Essential (primary) hypertension; E78.00 Pure hypercholesterolemia, unspecified; E11.65 Type 2 diabetes mellitus with hyperglycemia; R65.20 Severe sepsis without septic shock; E66.9 Obesity, unspecified; E11.622 Type 2 diabetes mellitus with other skin ulcer; E83.51 Hypocalcemia; K59.00 Constipation, unspecified; Z20.822 Contact with and (suspected) exposure to COVID-19; Y84.8 Other medical procedures as the cause of abnormal reaction of the patient, or of later complication, without mention of misadventure at the time of the procedure; Z79.4 Long term (current) use of insulin; Z79.899 Other long term (current) drug therapy; Z68.35 Body mass index [BMI] 35.0-35.9, adult; Y92.89 Other specified places as the place of occurrence of the external cause

== ENCOUNTER 2020-10-12 13:46 | Inpatient (IN) | payer MEDICARE ==
[~2020-10-12] VITALS: Ht 172.7 cm; Wt 87.4 kg
[2020-10-12] MEDS ORDERED: OXYCODONE HCL 55 MG PO (16:25)
[2020-10-12] MEDS ORDERED: NEURONTIN 400M400 M2 PO (16:27)
[2020-10-12] MEDS ORDERED: COLACE 100 MG100 MG PO (16:30)
[2020-10-12] MEDS ORDERED: PROTONIX40 M2 PO (16:31)
[2020-10-12 18:25] VITALS: BP 130/67
[2020-10-12 19:00] VITALS: BP 149/68
[2020-10-13 05:12] LABS: CALCIUM 7.9 mg/dL (8.5-10.1); CREATININE 1.3 mg/dL (0.6-1.3); POTASSIUM 4.1 mmol/L (3.5-5.1)
[2020-10-13 05:25] LABS: HEMATOCRIT 23.7 % (37.0-47.0); HEMOGLOBIN 7.6 gm/dL (12.0-15.0); MCHC 32.1 g/dL (28.0-37.0); MCV 90.3 fL (80.0-100.0); MPV 6.8 fl. (7.2-11.1); RBC 2.62 mil/uL (4.20-5.00); WBC 6.7 thou/uL (4.0-11.0)
[2020-10-13 07:46] VITALS: BP 107/53
[2020-10-13 19:00] VITALS: BP 119/67
[2020-10-14 08:16] VITALS: BP 152/71
[2020-10-14 20:14] VITALS: BP 111/61
[2020-10-15 08:18] VITALS: BP 118/62
[2020-10-15 20:00] VITALS: BP 125/67
[2020-10-16 07:50] VITALS: BP 125/67
[2020-10-16 20:14] VITALS: BP 134/73
[2020-10-17 07:43] VITALS: BP 112/57
[2020-10-17 20:13] VITALS: BP 128/75
[2020-10-18 08:00] VITALS: BP 128/59
[2020-10-18 19:00] VITALS: BP 118/57
[2020-10-19 08:27] VITALS: BP 118/68
[2020-10-19 19:00] VITALS: BP 123/68
[2020-10-20 04:38] LABS: HEMATOCRIT 27.9 % (37.0-47.0); HEMOGLOBIN 9.1 gm/dL (12.0-15.0); MCHC 32.5 g/dL (28.0-37.0); MCV 92.3 fL (80.0-100.0); MPV 7.6 fl. (7.2-11.1); RBC 3.02 mil/uL (4.20-5.00); RDW-CV 15.7 % (10.5-14.5); WBC 10.8 thou/uL (4.0-11.0)
[2020-10-20 05:12] LABS: CALCIUM 8.4 mg/dL (8.5-10.1); CREATININE 1.8 mg/dL (0.6-1.3); POTASSIUM 3.7 mmol/L (3.5-5.1)
[2020-10-20 07:40] VITALS: BP 110/67
[2020-10-20 20:04] VITALS: BP 119/56
[2020-10-21 07:42] VITALS: BP 124/68
[2020-10-21 20:00] VITALS: BP 119/63
[2020-10-22 04:22] LABS: CALCIUM 8.3 mg/dL (8.5-10.1); CREATININE 1.8 mg/dL (0.6-1.3)
[2020-10-22 08:02] VITALS: BP 96/55
[2020-10-22 20:08] VITALS: BP 103/54
[2020-10-23 08:07] VITALS: BP 114/66
[2020-10-23 19:00] VITALS: BP 113/53
[2020-10-24 07:45] VITALS: BP 103/54
[2020-10-24 20:00] VITALS: BP 100/59
[2020-10-25 08:00] VITALS: BP 125/73
[2020-10-25 19:30] VITALS: BP 98/58
[2020-10-26 07:55] VITALS: BP 114/56
[2020-10-26 19:00] VITALS: BP 123/65
[2020-10-27 04:49] LABS: HEMATOCRIT 30.2 % (37.0-47.0); MCH 30.6 pg (26.0-34.0); MCV 92.7 fL (80.0-100.0); MPV 8.5 fl. (7.2-11.1); RBC 3.26 mil/uL (4.20-5.00); RDW-CV 15.9 % (10.5-14.5); WBC 10.2 thou/uL (4.0-11.0)
[2020-10-27 05:20] LABS: CALCIUM 8.7 mg/dL (8.5-10.1); CREATININE 2.4 mg/dL (0.6-1.3); POTASSIUM 5.1 mmol/L (3.5-5.1)
[2020-10-27 09:28] VITALS: BP 101/65
[2020-10-27 19:00] VITALS: BP 96/50
[2020-10-28 06:33] LABS: CALCIUM 8.6 mg/dL (8.5-10.1); CREATININE 2.6 mg/dL (0.6-1.3); POTASSIUM 5.7 mmol/L (3.5-5.1)
[2020-10-28 07:22] VITALS: BP 92/46
[2020-10-28 15:18] LABS: URINE BILIRUBIN NEGATIVE (Negative); URINE BLOOD NEGATIVE (Negative); URINE CLARITY CLEAR; URINE COLOR YELLOW; URINE GLUCOSE-RANDOM NEGATIVE (Negative); URINE KETONES NEGATIVE (Negative); URINE LEUKOCYTES 1+ (Negative); URINE NITRITE NEGATIVE (Negative); URINE PROTEIN NEGATIVE (Negative); URINE UROBILINOGEN 0.2 E.U./dl (0.2-1.0)
[2020-10-28 15:42] LABS: BACTERIA 1-9 Few /HPF (None Seen); CASTS None Seen /LPF (None Seen); CRYSTALS None Seen /LPF (None Seen); SQUAMOUS 4-10 Moderate /LPF (0-3); URINE RBC 0-2 Rare /HPF (0-2); URINE WBC 6-15 Few /HPF (0-5)
[2020-10-28 20:18] VITALS: BP 103/64
[2020-10-29 08:05] VITALS: BP 95/51
[2020-10-29 10:32] LABS: CALCIUM 9.2 mg/dL (8.5-10.1); CREATININE 2.2 mg/dL (0.6-1.3); POTASSIUM 5.1 mmol/L (3.5-5.1)
--- NOTE | 2020-10-29 11:17 | CON ---
[address] [address] CONSULTATION Name: CHIP CURRY Room: [address] IN M.R.#: [id number] Admission: 10/12/20 Attend Phys: Alexandro Soares MD Discharge: Date of : 56 Report #: [id number] THIS REPORT FOR: cc: [place] - No family physician/PCP FAM - No family physician/PCP Sully Sargent MD ~ DATE OF CONSULTATION: 10/28/2020 NEPHROLOGY CONSULTATION CONSULTING PHYSICIAN: Alexandro Soares MD. REASON FOR NEPHROLOGY CONSULTATION: Acute kidney injury as well as hyperkalemia. REASON FOR ADMISSION: The patient was admitted for rehab purposes after her recent BKA. 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 She initially underwent incision and debridement and right fourth toe amputation but ended up having right BKA on 10/05 and is in rehab to get stronger. Her creatinine usually runs 1.3-1.4 and it was 1.8 on 10/22, went up to 2.4 yesterday and 2.6 today and hence Nephrology was consulted. Her potassium is also towards the higher side 5.7. She has not been eating or drinking much and she has been getting lisinopril and hydrochlorothiazide. Her blood pressure also has been running towards the lower side 90 systolic. She is not retaining urine, bladder scan was only 80 mL and she has also been constipated. REVIEW OF SYSTEMS: As mentioned in history of present illness, otherwise 10-point review of systems are negative. ALLERGIES: No known drug allergies. FAMILY HISTORY: Reviewed and noncontributory. SOCIAL HISTORY: She does not use tobacco, alcohol or any drugs. PAST MEDICAL AND SURGICAL HISTORY: Includes COPD, diabetes mellitus type 2, hypertension, dyslipidemia and falls. She has chronic kidney disease, stage 3B, baseline creatinine is 1.3-1.4. [place] [address] CONSULTATION Name: CHIP CURRY Room: [address] IN [facility]#: [id number] Admission: 10/12/20 Attend Phys: Alexandro Soares MD Discharge: Date of : 56 Report #: [id number] HOME MEDICATIONS: Include albuterol, Pulmicort, montelukast, Mucinex, fluticasone, DuoNeb, Dulera, prednisone, gabapentin, glipizide, Symbicort, lisinopril and hydrochlorothiazide, cetirizine, NovoLog, ranitidine, insulin regimen, trazodone. PHYSICAL EXAMINATION: VITAL SIGNS: Blood pressure is 92/46, respiratory rate is 16, pulse rate is 84, temperature 37.0, and pulse ox is 98% on room air. GENERAL: She is awake, alert, oriented x 3. HEAD AND EYES: Atraumatic and normocephalic. Conjunctivae normal. EARS, NOSE, AND THROAT: Normal ears and nose. Mucous membranes are dry. NECK: There is no JVD. CHEST: Bilaterally clear to auscultation. No crackles or wheezing anteriorly. CARDIOVASCULAR: S1, S2 normal. No murmurs. ABDOMEN: Soft, nondistended, nontender. EXTREMITIES: Lower extremities, there is no edema. Right BKA. SKIN: Dry and skin turgor is decreased. NEUROLOGIC: Function is grossly intact. PSYCHIATRIC: Mood and affect seem to be normal. She is very pleasant. LABORATORY DATA: Potassium is 5.7, creatinine is 2.6, BUN is 68, sodium is 140 and other labs were reviewed. IMAGING: Renal ultrasound was reviewed. ASSESSMENT AND PLAN: 1. Acute kidney injury on chronic kidney disease, stage 3B, baseline creatinine is 1.3-1.4. Likely has underlying diabetic nephropathy. Acute kidney injury in the setting of hypotension, use of lisinopril and hydrochlorothiazide, poor fluid intake. Renal ultrasound showed bilateral renal cortical thinning, indicating chronic kidney disease. UA is pending. 2. Hyperkalemia, which is in the setting of lisinopril use, intravascular volume depletion. She is not on renal diet and she has also been constipated. 3. Constipation, needs to treat. 4. Diabetes type 2. We will defer to Internal Medicine for management. 5. Status post sepsis due to diabetic right foot and gas gangrene, status post right below-knee amputation on 10/05. We will defer to PT, OT and surgery. 6. Hypertension. Blood pressure running towards the lower side. Blood pressure medications on hold. 7. Chronic obstructive pulmonary disease. We will defer to Internal Medicine for management. PLAN: 1. Start her on IV fluid half normal saline at 75 mL an hour, stop lisinopril [address] [address] CONSULTATION Name: CHIP CURRY Room: [facility] IN M.R.#: [id number] Admission: 10/12/20 Attend Phys: Alexandro Soares MD Discharge: Date of : 56 Report #: [id number] and hydrochlorothiazide. 2. Check UA. 3. She should be on renal diet. 4. Treat constipation, give her MiraLax every day until she has 3 good bowel movements. 5. Check morning labs. 6. No Fleet enema in the setting of CKD and acute kidney injury because of risk for phosphorus toxicity. Thank you for the consultation. We will continue to follow with you. Discussed with the patient and the patient's nurse. <ELECTRONICALLY SIGNED> By: Sully Sargent MD 10/29/20 [id number] Sargent MD /nt
[2020-10-29 20:21] VITALS: BP 100/59
[2020-10-30 04:09] LABS: CALCIUM 8.5 mg/dL (8.5-10.1); POTASSIUM 5.4 mmol/L (3.5-5.1)
[2020-10-30 08:00] VITALS: BP 112/61
[2020-10-30 20:18] VITALS: BP 103/60
[2020-10-31 04:42] LABS: HEMATOCRIT 27.8 % (37.0-47.0); HEMOGLOBIN 9.1 gm/dL (12.0-15.0); MCH 30.2 pg (26.0-34.0); MCHC 32.8 g/dL (28.0-37.0); MCV 92.2 fL (80.0-100.0); MPV 7.6 fl. (7.2-11.1); RBC 3.01 mil/uL (4.20-5.00); RDW-CV 15.6 % (10.5-14.5); WBC 6.9 thou/uL (4.0-11.0)
[2020-10-31 05:03] LABS: ALBUMIN 2.9 g/dL (3.4-5.0); CALCIUM 8.9 mg/dL (8.5-10.1); CREATININE 1.7 mg/dL (0.6-1.3); MAGNESIUM 2.1 mg/dL (1.8-2.4); POTASSIUM 4.9 mmol/L (3.5-5.1); TOTAL BILIRUBIN 0.4 mg/dL (<0.1-1.0); TOTAL PROTEIN 6.4 g/dL (6.4-8.2)
[2020-10-31 07:59] VITALS: BP 98/46
[2020-10-31 19:45] VITALS: BP 89/58
[2020-11-01 04:33] LABS: HEMATOCRIT 27.6 % (37.0-47.0); HEMOGLOBIN 9.1 gm/dL (12.0-15.0); MCH 30.4 pg (26.0-34.0); MCHC 33.1 g/dL (28.0-37.0); MCV 91.9 fL (80.0-100.0); RDW-CV 15.7 % (10.5-14.5); WBC 6.8 thou/uL (4.0-11.0)
[2020-11-01 05:12] LABS: ALBUMIN 2.9 g/dL (3.4-5.0); CALCIUM 8.7 mg/dL (8.5-10.1); MAGNESIUM 2.1 mg/dL (1.8-2.4); POTASSIUM 4.7 mmol/L (3.5-5.1); TOTAL BILIRUBIN 0.3 mg/dL (<0.1-1.0); TOTAL PROTEIN 6.3 g/dL (6.4-8.2)
[2020-11-01 07:46] VITALS: BP 103/55
[2020-11-01 07:50] VITALS: BP 97/62
[2020-11-01 20:05] VITALS: BP 105/69
[2020-11-02 04:26] LABS: CALCIUM 8.3 mg/dL (8.5-10.1); MAGNESIUM 1.8 mg/dL (1.8-2.4); POTASSIUM 4.2 mmol/L (3.5-5.1)
[2020-11-02 04:27] LABS: HEMATOCRIT 27.6 % (37.0-47.0); HEMOGLOBIN 9.1 gm/dL (12.0-15.0); MCH 30.7 pg (26.0-34.0); MCHC 33.1 g/dL (28.0-37.0); MCV 92.7 fL (80.0-100.0); MPV 8.2 fl. (7.2-11.1); RBC 2.97 mil/uL (4.20-5.00); RDW-CV 15.7 % (10.5-14.5); WBC 7.7 thou/uL (4.0-11.0)
[2020-11-02 08:17] VITALS: BP 104/58
[2020-11-02] MEDS ORDERED: ALBUTEROL SULFAT2 MG PO (11:36)
[2020-11-02] MEDS ORDERED: IPRAT-ALBUT 0.5-3 ML INH (11:36)
[2020-11-02] MEDS ORDERED: BROVANA15 MCG/2 M INH (11:36)
[2020-11-02] MEDS ORDERED: GABAPENTIN800 M1 PO (11:36)
[2020-11-02] MEDS ORDERED: OXYCODONE HCL 55 MG PO (11:36)
== END 2020-11-02 16:28 | DRG 299 ==
LOC: M.REH 13:46
PROVIDERS: Family Medicine; Internal Medicine; ADMIT Physical Medicine & Rehabilitation; ATTEND Physical Medicine & Rehabilitation
DX: E11.52 Type 2 diabetes mellitus with diabetic peripheral angiopathy with gangrene (principal); A48.0 Gas gangrene; A41.9 Sepsis, unspecified organism; E43 Unspecified severe protein-calorie malnutrition; N17.9 Acute kidney failure, unspecified; E11.621 Type 2 diabetes mellitus with foot ulcer; R53.81 Other malaise; E11.628 Type 2 diabetes mellitus with other skin complications; J44.9 Chronic obstructive pulmonary disease, unspecified; E78.00 Pure hypercholesterolemia, unspecified; I95.9 Hypotension, unspecified; D64.9 Anemia, unspecified; L97.519 Non-pressure chronic ulcer of other part of right foot with unspecified severity; N18.32 Chronic kidney disease, stage 3b; E11.22 Type 2 diabetes mellitus with diabetic chronic kidney disease; E11.21 Type 2 diabetes mellitus with diabetic nephropathy; E66.9 Obesity, unspecified; E87.5 Hyperkalemia; E83.51 Hypocalcemia; K59.00 Constipation, unspecified; I12.9 Hypertensive chronic kidney disease with stage 1 through stage 4 chronic kidney disease, or unspecified chronic kidney disease; R29.6 Repeated falls; R26.9 Unspecified abnormalities of gait and mobility; R19.7 Diarrhea, unspecified; Z20.822 Contact with and (suspected) exposure to COVID-19; Z68.29 Body mass index [BMI] 29.0-29.9, adult; Z89.511 Acquired absence of right leg below knee; Z79.899 Other long term (current) drug therapy